=== PATIENT | male | born 1965 | race African-American/Black ===

== ENCOUNTER 2018-02-10 12:11 | Emergency (ER) | payer MEDICAID ==
[~2018-02-10] VITALS: Ht 188 cm; Wt 99.8 kg
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
[2018-02-10] MEDS ORDERED: BACITRACIN IR STA (12:50)
[2018-02-10] MEDS ORDERED: NEOMY SULF IR STA (12:50)
[2018-02-10] MEDS ORDERED: [UNRECOGNIZED DRUG - OTHER] IR STA (12:50)
[2018-02-10] MEDS ORDERED: POLYMYXIN B SULFATE IR STA (12:50)
[2018-02-10] MEDS ORDERED: TDAP [DIPH/PERTUSSIS/TET] 0.5 ML VIAL IM ONE ×2 (13:00→13:06)
[2018-02-10] MEDS ORDERED: SILVER SULFADIAZINE CREAM 25 GM TUBE TP ONE (13:00)
--- NOTE | 2018-02-10 14:02 | NUR ---
Patient discharged to home in stable condition. Written and verbal after care instructions given. Patient verbalizes understanding of instruction.
[2018-02-10 14:03] VITALS: BP 128/94
== END 2018-02-10 14:03 | disposition home or self-care (01) ==
LOC: ER 12:14
DX: T24.232A Burn of second degree of left lower leg, initial encounter (principal); T24.112A Burn of first degree of left thigh, initial encounter; Z59.0 Homelessness; X08.8XXA Exposure to other specified smoke, fire and flames, initial encounter; Y93.89 Activity, other specified; Y92.488 Other paved roadways as the place of occurrence of the external cause; Y99.8 Other external cause status
CPT/HCPCS: 16020; 90471; 90715; 99284; A4606; Z7610; A4217

== ENCOUNTER 2019-11-17 17:37 | Emergency (ER) | payer SELFPAY ==
[~2019-11-17] VITALS: Ht 188 cm; Wt 99.8 kg
[2019-11-17 17:45] VITALS: BP 167/100
--- NOTE | 2019-11-17 19:12 | NUR ---
Patient discharged in custody in stable condition. Written and verbal after care instructions given. Patient verbalizes understanding of instruction.
== END 2019-11-17 19:14 | disposition home or self-care (01) ==
LOC: ER 17:41
DX: Z02.89 Encounter for other administrative examinations (principal)

== ENCOUNTER 2020-07-31 09:16 | Inpatient (IN) | payer MEDICAID ==
[~2020-07-31] VITALS: Ht 188 cm; Wt 75.3 kg
[~2020-07-31 09:16] MED LIST: ONDANSETRON HCL/PF 4 MG/2 ML VIAL IVP PRN
--- NOTE | 2020-07-31 09:31 | NUR ---
Figueroa c/o body pain s/p snake bites in the butt 4 days ago. On room air, breathing evenly and unlabored. Connected to the monitor and pulse ox. kept comfortable, will continue to monitor accordingly.
--- NOTE | 2020-07-31 09:45 | NUR ---
URINE COLLECTED SENT TO LAB
[2020-07-31 10:29] LABS: BASOPHILS % (AUTO) 0.1 % (0.0-2.0); HEMATOCRIT 39 % (39-51); HEMOGLOBIN 12.8 g/dL (13.5-17.5); LYMPHOCYTES # (AUTO) 0.3 /CMM (0.8-4.8); LYMPHOCYTES % (AUTO) 1.1 % (20.0-44.0); MEAN CORPUSCULAR HGB CONC 33 g/dl (31.0-36.0); MEAN CORPUSCULAR VOLUME 88 fL (80-96); MONOCYTES # (AUTO) 0.8 /CMM (0.1-1.30); MONOCYTES % (AUTO) 3.5 % (2.0-12.0); NEUTROPHILS # (AUTO) 21.7 /CMM (1.8-8.9); NEUTROPHILS % (AUTO) 93.3 % (43.0-81.0); PLATELET COUNT (AUTO) 201 /CMM (150-450); RED BLOOD CELL COUNT(AUTO) 4.38 MIL/uL (4.5-6.0); WHITE BLOOD COUNT (AUTO) 23.3 K/uL (4.3-11.0)
[2020-07-31 10:41] LABS: CALCIUM, SERUM 8.4 mg/dL (8.5-10.1); CREATININE 1.6 mg/dL (0.6-1.3); POTASSIUM 4.5 mmol/L (3.5-5.1)
[2020-07-31 10:47] LABS: BILIRUBIN,URINE SMALL (NEGATIVE); BLOOD, URINE LARGE Ery/uL (NEGATIVE); COLOR,URINE DARK YELLOW (YELLOW); LEUKOCYTE ESTERASE ,URINE TRACE (NEGATIVE); NITRITE, URINE NEGATIVE (NEGATIVE); PROTEIN,URINE 100 mg/dl (NEGATIVE); UGLUCOSE NEGATIVE (NEGATIVE)
[2020-07-31 10:48] LABS: ALBUMIN 2.3 g/dL (3.4-5.0); BILIRUBIN,DIRECT 0.7 mg/dL (0.0-0.2); BILIRUBIN,TOTAL 1.1 mg/dL (0.2-1.0); TOTAL PROTEIN, SERUM 6.8 g/dL (6.4-8.2)
[2020-07-31] MEDS ORDERED: LEVOFLOXACIN 750 MG /D5W 150ML PIGGYBACK IV ONE (11:00)
[2020-07-31] MEDS ORDERED: LEVOFLOXACIN 750 MG /D5W 150ML 150 ML IV ONE (11:04)
[2020-07-31 11:06] LABS: BACTERIA,URINE Few /HPF (None Seen); SQUAMOUS EPITHELIAL CELL,UR Few /HPF (None Seen); WBC,URINE 0-2 /HPF (0-3)
--- NOTE | 2020-07-31 11:22 | NUR ---
PAGED [facility].
--- NOTE | 2020-07-31 11:44 | NUR ---
CALLED NURSING SUP FOR M/S BED.
[2020-07-31] MEDS ORDERED: IV NS 0.9% 1,000 ML IV ONE (13:00)
[2020-07-31] MEDS ORDERED: ALBUTEROL SULFATE 8 GM HFA.AER.AD IH PRN (13:00)
--- NOTE | 2020-07-31 13:06 | NUR ---
PT IS RECEIVING 1L NS VIA IV. PT IS NOT GOING TO RECEIVE FULL FLUID CHALLENGE PER MD D/T PT IS STILL AWAITING COVID RESULT WHICH IS PCR.
[2020-07-31 14:37] LABS: C-REACTIVE PROTEIN 210.1 mg/dL (0.0-0.9)
--- NOTE | 2020-07-31 14:43 | NUR ---
BED ASSIGNED IS 264, OVERFLOW TO ICU
--- NOTE | 2020-07-31 14:51 | NUR ---
report given to gladys rosales at icu
[2020-07-31 15:23] VITALS: BP 99/72
[2020-07-31 16:00] VITALS: BP 112/76
--- NOTE | 2020-07-31 16:00 | NUR ---
PT TRANSPORTED TO UNIT ON GURNEY WITH EMT AND RN AT THE BEDSIDE W/ ACLS RPTOCOL. NAD NOTED DURING TRANSPORT
[2020-07-31] MEDS: VANCOMYCIN 1 GM in IV D5W 250ml IV SCH (16:45)
[2020-07-31 17:00] VITALS: BP 133/90
[2020-07-31] MEDS: IV NS 0.9% 1,000 ML IV PRN (17:22)
[2020-07-31 18:00] VITALS: BP 114/67
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
--- NOTE | 2020-07-31 19:41 | NUR ---
END OF SHIFT NOTE: PT ARRIVED IN ICU MED/SURG OVERFLOW AT 1510 VIA GURNEY. ISOLATION FOR R/O COVID, NO COVID SYMPTOMS NOTED. PT ON RA, NO COUGH OR RESPIRATORY SYMPTOMS. PT C/O GENERALIZED PAIN, ESPECIALLY RIGHT LEG, STATING THAT THE PAIN IS RELATED TO "A SNAKE BITE" ON HIS BUTTOCKS 4 DAYS AGO. NO WOUND NOTED ON RIGHT BUTTOCK, WOUND NOTED ON LEFT BUTTOCK, APPEARS TO BE AN ABRASION, PICTURE TAKEN, PLACED ON CHART. WOUND CARE CONSULT ORDERED. AT 1930 WHILE GIVING CHANGE OF SHIFT REPORT PATIENT APPEARED TO BE LAYING ON THE FLOOR NEXT TO THE BED. RN ASKED PATIENT WHY HE WAS ON THE FLOOR PT STATED "IT WAS TOO HOT ON THE BED, THE FLOOR IS COOLER". RN ASKED PATIENT IF HE FELL, PT STATED NO, HE PURPOSELY SLID OFF THE BED TO THE FLOOR TO GET COOL. PT DENIES ANY INJURIES FROM THE FALL, NO NEW WOUNDS NOTED. CHARGE NURSE NOTIFIED. PT WAS ASSISTED BACK TO BED, PT WAS MOVED CLOSER TO THE NURSES STATION AND BED ALARM WAS PUT ON. RN ALSO INSTRUCTED PATIENT TO NOT GET ON THE FLOOR FOR ANY REASON. IV SITE STILL INTACT. PT CHECKED ON HOURLY AND PRN BY NURSING STAFF.
[2020-07-31 20:00] VITALS: BP 113/79
[2020-08-01] MEDS: VANCOMYCIN 1 GM in IV D5W 250ml IV SCH ×3 (03:40→23:33)
[2020-08-01] MEDS: IV NS 0.9% 1,000 ML IV PRN (03:42)
[2020-08-01 04:00] VITALS: BP 117/66
--- NOTE | 2020-08-01 06:05 | NUR ---
RN NOTE RECEIVED BLOOD CULTURE RESULT FROM LAB FOR GRAM POSITIVE COCCI IN CHAINS. PATIENT IS ALREADY ON LEVAQUIN 500 MG AND VANCOMYCIN [address] BILL VANEGAS MADE AWARE. NO NEW ORDERS GIVEN. WILL CONTINUE TO MONITOR.
[2020-08-01 06:13] LABS: BASOPHILS # (AUTO) 0.2 /CMM (0.0-0.2); BASOPHILS % (AUTO) 0.5 % (0.0-2.0); EOSINOPHILS % (AUTO) 3.6 % (0.0-6.0); HEMATOCRIT 36 % (39-51); LYMPHOCYTES # (AUTO) 0.3 /CMM (0.8-4.8); LYMPHOCYTES % (AUTO) 1.2 % (20.0-44.0); MEAN CORPUSCULAR HGB CONC 33 g/dl (31.0-36.0); MEAN CORPUSCULAR VOLUME 87 fL (80-96); MONOCYTES # (AUTO) 1.4 /CMM (0.1-1.30); MONOCYTES % (AUTO) 4.8 % (2.0-12.0); NEUTROPHILS # (AUTO) 25.6 /CMM (1.8-8.9); NEUTROPHILS % (AUTO) 89.9 % (43.0-81.0); PLATELET COUNT (AUTO) 148 /CMM (150-450); RED BLOOD CELL COUNT(AUTO) 4.12 MIL/uL (4.5-6.0); WHITE BLOOD COUNT (AUTO) 28.5 K/uL (4.3-11.0)
[2020-08-01 06:41] LABS: ALBUMIN 1.8 g/dL (3.4-5.0); CALCIUM, SERUM 7.8 mg/dL (8.5-10.1); CREATININE 1.2 mg/dL (0.6-1.3); POTASSIUM 3.7 mmol/L (3.5-5.1); TOTAL PROTEIN, SERUM 6.1 g/dL (6.4-8.2)
--- NOTE | 2020-08-01 06:54 | NUR ---
RN NOTE PATIENT REMAINED STABLE THROUGHOUT THE NIGHT. NO SIGNIFICANT CHANGES NOTED. NO EPISODE OF FALL DURING THE NIGHT. PATIENT KEPT CLEAN, DRY, AND COMFORTABLE. DUE MEDS GIVEN ORDERED AND TOLERATED WELL. WILL ENDORSE TO AM SHIFT RN FOR CONTINUATION OF CARE.
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
--- NOTE | 2020-08-01 08:39 | NUR ---
RN NOTES MALIKA SANCHEZ INFORMED THAT CKMB OF 15.6 [address] DENICE CABRERA
--- NOTE | 2020-08-01 09:24 | NUR ---
RN NOTES NO ORDERS FOR CRITICAL VALUE OF CK MB AND PROCALCITONIN
[2020-08-01] MEDS ORDERED: HYDROGEL DRESSING 90 GM TUBE TP PRN (10:00)
[2020-08-01] MEDS ORDERED: Z GUARD REMEDY 2 OZ OINT TP PRN (10:00)
--- NOTE | 2020-08-01 10:03 | NUR ---
WOUND CARE CONSULT: PT PRESENTS WITH STAGE 3 ULCER TO LEFT BUTTOCK, PRESENT ON ADMISSION. DR ORLY DE LA O NOTIFIED OF SURGICAL CONSULT REQUEST. RECOMMENDATIONS MADE FOR SKIN PROTECTION AND WOUND CARE. DISCUSSED WITH NURSING STAFF. PT IS ON STEPH ISOFLEX LOW AIRLOSS BED. MD IN AGREEMENT WITH PLAN OF CARE.
[2020-08-01] MEDS: HYDROGEL DRESSING 90 GM TUBE TP SCH (10:19)
[2020-08-01] MEDS: LEVOFLOXACIN 500 MG /D5W 100ML 500 MG in PREMIX 1 EA IV SCH (11:03)
[2020-08-01 12:00] VITALS: BP 117/66
--- NOTE | 2020-08-01 13:29 | NUR ---
SW attempted to meet with the patient at bedside. Patient was being assisted by WEED CONTROLLER for a change in garments. Plan: SW to attempt to speak with the patient at a later time.
--- NOTE | 2020-08-01 14:00 | NUR ---
RN NOTES PT HAS NO OB OR DISTRESS NOTED AT THIS TIME
--- NOTE | 2020-08-01 16:00 | NUR ---
RN NOTES PLACED CONDOM CATH AND COLLECTED URINE FOR SPECIMEN
--- NOTE | 2020-08-01 18:35 | NUR ---
RN CLOSING NOTES PT IS RESTING IN BED. . A/O X2. ABLE TO MAKE NEEDS KNOWN IN [place]. SPEECH IS CLEAR. BREATHING IS EVEN AND UNLABORED.NO S/S OF SOB OR DISTRESS NOTED O2 SAT IS 96% ON ROOM AIR. IV SITE ON RIGHT FOREARM IS CLEAN, DRY, AND PATENT NO SIGN OF INFILTRATION OR INFECTION NOTED. CONDOM CATH IS PLACED. ON NS IV FLUID RUNNING AT 100 ML/HR. IN NO APPARENT DISTRESS NOTED. NO COMPLAINTS OF ANY PAIN AT THIS TIME. SAFETY MEASUREMENTS ARE IMPLEMENTED PER HOSPITAL POLICY. CALL LIGHT IS WITHIN THE REACH. BED ALARM ON AND SIDE RAILS ARE UP X2 BED IS LOWEST POSITION. WILL ENDORSE TO CROP ADJUSTER
[2020-08-01 20:00] VITALS: BP 112/67
[2020-08-01 21:33] LABS: BILIRUBIN,URINE NEGATIVE (NEGATIVE); BLOOD, URINE MODERATE Ery/uL (NEGATIVE); COLOR,URINE YELLOW (YELLOW); LEUKOCYTE ESTERASE ,URINE NEGATIVE (NEGATIVE); NITRITE, URINE NEGATIVE (NEGATIVE); PROTEIN,URINE TRACE mg/dl (NEGATIVE); UGLUCOSE NEGATIVE (NEGATIVE)
[2020-08-01 21:35] LABS: BACTERIA,URINE None seen /HPF (None Seen); SQUAMOUS EPITHELIAL CELL,UR Few /HPF (None Seen); WBC,URINE 0-2 /HPF (0-3)
[2020-08-02 04:00] VITALS: BP 101/69
[2020-08-02] MEDS: IV NS 0.9% 1,000 ML IV PRN (04:29)
[2020-08-02 06:03] LABS: BASOPHILS # (AUTO) 0.1 /CMM (0.0-0.2); BASOPHILS % (AUTO) 0.3 % (0.0-2.0); EOSINOPHILS % (AUTO) 0.1 % (0.0-6.0); HEMATOCRIT 34 % (39-51); HEMOGLOBIN 11.4 g/dL (13.5-17.5); LYMPHOCYTES # (AUTO) 0.5 /CMM (0.8-4.8); LYMPHOCYTES % (AUTO) 1.7 % (20.0-44.0); MEAN CORPUSCULAR HGB CONC 33 g/dl (31.0-36.0); MEAN CORPUSCULAR VOLUME 87 fL (80-96); MONOCYTES # (AUTO) 1.6 /CMM (0.1-1.30); MONOCYTES % (AUTO) 5.6 % (2.0-12.0); NEUTROPHILS # (AUTO) 26.9 /CMM (1.8-8.9); NEUTROPHILS % (AUTO) 92.3 % (43.0-81.0); PLATELET COUNT (AUTO) 150 /CMM (150-450); RED BLOOD CELL COUNT(AUTO) 3.91 MIL/uL (4.5-6.0); WHITE BLOOD COUNT (AUTO) 29.1 K/uL (4.3-11.0)
[2020-08-02 06:11] LABS: CALCIUM, SERUM 7.8 mg/dL (8.5-10.1); CREATININE 0.6 mg/dL (0.6-1.3); MAGNESIUM 2.7 mg/dL (1.8-2.4); PHOSPHORUS 2.1 mg/dL (2.5-4.9); POTASSIUM 3.2 mmol/L (3.5-5.1)
--- NOTE | 2020-08-02 06:42 | NUR ---
RN CLOSING NOTES, PATIENT IN BED AWAKE A/O X2, BREATHING IS EVEN AND UNLABORED, NO S/S OF SOB OR DISTRESS NOTED WITH OPTIMAL O2 SAT LEVEL ON ROOM AIR, IV SITE ON RIGHT FOREARM PATENT AND INTACT IVF INFUSING ORDERED, AND PATIENT TOLERATED WELL, SAFETY MEASUREMENTS ARE IMPLEMENTED PER HOSPITAL POLICY, CALL LIGHT IS WITHIN THE REACH, BED LOCKED AND LOWEST POSITION, ALARM ON, SIDE RAILS ARE UP X2, WILL ENDORSE CONTINUITY OF CARE TO ONCOMING NURSE.
--- NOTE | 2020-08-02 07:15 | NUR ---
RN OPENING NOTES RECEIVED PATIENT IN BED AWAKE, A/O X2. ON ROOM AIR, SATURATION @99%. NO SOB OR ANY SIGNS OF DISTRESS NOTED AT THIS TIME. IV SITE ON RIGHT FOREARM INTACT AND PATENT. NS @100MLS/HR INFUSING WELL. SOFT DIET. SAFETY MEASUREMENTS IMPLEMENTED. CALL LIGHT WITHIN REACH. BED LOCKED AND AT LOWEST POSITION. BED ALARM ON. SIDE RAILS ARE UP X2. WILL CONTINUE TO MONITOR.
[2020-08-02] MEDS ORDERED: POTASSIUM CHLORIDE 20 MEQ TAB.PRT.SR PO ONE (08:00)
[2020-08-02] MEDS: VANCOMYCIN 1 GM in IV D5W 250ml IV SCH ×2 (08:15→16:00)
[2020-08-02 08:16] LABS: LYMPHOCYTES % (MANUAL) 1 % (16-48); MONOCYTES % (MANUAL) 5 % (0-11.0); NEUTROPHILS % (MANUAL) 94 (42-76)
[2020-08-02] MEDS: HYDROGEL DRESSING 90 GM TUBE TP SCH (09:23)
[2020-08-02] MEDS ORDERED: K PHOS NEUTRAL 250 MG TABLET PO ONE (09:30)
[2020-08-02] MEDS: LEVOFLOXACIN 500 MG /D5W 100ML 500 MG in PREMIX 1 EA IV SCH (11:00)
[2020-08-02 12:00] VITALS: BP 114/77
--- NOTE | 2020-08-02 16:40 | NUR ---
This SW met with the patient at bedside. Patient is alert and oriented x3. Patient made appropriate eye contact throughout assessment. Patient was calm and cooperative. Patient reported to this SW that he has been homeless for a year. Patient reports that prior to being admitted to [facility] on 07/31 patient was feeling weak and unable to take care of himself. Patient reports that he would like assistance on applying to Social Security and EBT. SW informed this patient that this SW can provide information to the patient and patient would provide information to Social Security office. Patient understood. Patient reported to this SW regarding placement, per patient he has been speaking with case management regarding placement. Patient asked this SW to leave room as he was tired, SW understood and acknowledged patient's request. Plan: SW to follow-up to ensure plan and safe discharge once patient is medically cleared.
--- NOTE | 2020-08-02 17:15 | NUR ---
RN NOTES REPORT GIVEN TO HAYLEY CURTIS FOR ARAM
--- NOTE | 2020-08-02 18:42 | NUR ---
CARDING UTILITY TENDER CLOSING NOTES PATIENT IN BED AWAKE A/O X2, NOT IN ANY ACUTE DISTRESS , NO S/S OF SOB OR DISTRESS NOTED WITH OPTIMAL O2 SAT LEVEL ON ROOM AIR, IV SITE ON RIGHT FOREARM PATENT AND INTACT IVF INFUSING ORDERED, AND PATIENT TOLERATED WELL, SAFETY MEASUREMENTS ARE IMPLEMENTED PER HOSPITAL POLICY, CALL LIGHT IS WITHIN THE REACH, BED LOCKED AND LOWEST POSITION, ALARM ON, SIDE RAILS ARE UP X2, WILL ENDORSE TO NEXT SHIFT FOR ARAM.
[2020-08-02 20:00] VITALS: BP 104/67
--- NOTE | 2020-08-02 20:00 | NUR ---
RN NOTE RECEIVED PT IN THE BED RESTING. PT IS A/A/O X2. PT IS ON RA SATING ABOVE 95%. PT HAS UNLABORED BREATHING. PT ON TELE MONITOR SHOWING SR WITH HR IN 90s. SAFETY MEASURES IN PLACE.
[2020-08-03] VITALS: BP 121/76
[2020-08-03] MEDS: VANCOMYCIN 1 GM in IV D5W 250ml IV SCH ×2 (00:06→09:44)
[2020-08-03] MEDS: ACETAMINOPHEN 325 MG TABLET PO PRN (02:00)
--- NOTE | 2020-08-03 02:45 | NUR ---
RN NOTE PT IS COMPLAINING OF PAIN IN LEFT LOWER LEG , CONTACTED JAGJIT PRESLEY AND RECEIVED ORDER FOR NORCO 10/325 Q6H PRN, AND DUPLEX VENOUS TO RULE OUT DVT.
[2020-08-03 04:00] VITALS: BP 142/89
[2020-08-03] MEDS: HYDROCODONE/APAP 10/325MG TABLET PO PRN ×3 (04:45→19:25)
[2020-08-03] MEDS: IV NS 0.9% 1,000 ML IV PRN ×2 (04:57→22:27)
[2020-08-03 06:03] LABS: BASOPHILS # (AUTO) 0.1 /CMM (0.0-0.2); BASOPHILS % (AUTO) 0.2 % (0.0-2.0); HEMATOCRIT 36 % (39-51); HEMOGLOBIN 11.6 g/dL (13.5-17.5); LYMPHOCYTES # (AUTO) 0.7 /CMM (0.8-4.8); LYMPHOCYTES % (AUTO) 2.7 % (20.0-44.0); MEAN CORPUSCULAR HGB CONC 33 g/dl (31.0-36.0); MEAN CORPUSCULAR VOLUME 90 fL (80-96); MONOCYTES # (AUTO) 2.4 /CMM (0.1-1.30); MONOCYTES % (AUTO) 8.9 % (2.0-12.0); NEUTROPHILS % (AUTO) 88.2 % (43.0-81.0); PLATELET COUNT (AUTO) 175 /CMM (150-450); RED BLOOD CELL COUNT(AUTO) 3.98 MIL/uL (4.5-6.0); WHITE BLOOD COUNT (AUTO) 27.2 K/uL (4.3-11.0)
[2020-08-03 06:10] LABS: CALCIUM, SERUM 8.1 mg/dL (8.5-10.1); CREATININE 0.7 mg/dL (0.6-1.3); MAGNESIUM 2.4 mg/dL (1.8-2.4); POTASSIUM 3.6 mmol/L (3.5-5.1)
--- NOTE | 2020-08-03 07:18 | NUR ---
RN NOTE PT REMAINED STABLE DURING MY SHIFT, REPORT GIVEN TO INCOMING SHIFT FOR ARAM.
--- NOTE | 2020-08-03 07:40 | NUR ---
SALES LEAD GENERATOR 1 RECEIVED PATIENT IN BED, SLEEPING, EASILY AROUSABLE BY VERBAL STIMULI. ALERT ORIENTED X2 BREATHING EVEN AND UNLABORED . PATIENT ON TELE MONITOR, SINUS RHYTHM. NO SOB, NO PAIN NOTED. WITH PIV AT RFA WITH NS RUNNING AT 100ML/HR. NO SIGNS OF INFILTRATION, NO REDNESS NOTED ON IV SITE. BED AT LOWEST POSITION. SIDE RAILS UP X2 ALL SAFETY MEASURES IMPLEMENTED PER PROTOCOL. CALL LIGHT WITHIN REACH.
[2020-08-03 09:04] LABS: ABG PO2 99.2 mmHg (75.0-100.0); COHb 1.2 % (0.5-1.5); MetHb 0.1 % (0.0-1.5); O2Hb 96.7 % (94.0-97.0); SITE, ABG Right Radial; VENT MODE, BG RA
[2020-08-03] MEDS: HYDROGEL DRESSING 90 GM TUBE TP SCH (09:44)
[2020-08-03] MEDS: LEVOFLOXACIN 500 MG /D5W 100ML 500 MG in PREMIX 1 EA IV SCH (11:39)
[2020-08-03 12:00] VITALS: BP 143/86
[2020-08-03] MEDS ORDERED: NEUTRA PHOS 1 POWD.PACKET PO ONE (12:30)
[2020-08-03] MEDS: VANCOMYCIN 1.25 GM in IV D5W 250 ML IV SCH ×2 (15:35→23:10)
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
--- NOTE | 2020-08-03 18:23 | NUR ---
SUPERINTENDENT PRESSURE 1 RESIDENT IN BED, ALERT ORIENTED X2. NOT IN ANY ACUTE DISTRESS, NO SOB, GENERALIZED PAIN NOTED DESCRIBED ACHY. WITH EXTERNAL MONITOR, SR/ST. PATIENT USE URINAL AT BEDSIDE WITH 1360 OUTPUT. WITH LEFT BUTTOCKS ABRASION, STATED A SNAKE BITE. PATIENT HAD DOPPLER ON LLE, BECAME POSITIVE WITH DVT, AWARE. WITH RFA 20 G, ON NS RUNNING 100ML/HR. NO SIGNS OF INFILTRATION. BED LOCKS, LOWEST POSITION. SIDE RAILS UP X2. CALL LIGHT WITHIN REACH, ALL SAFETY MEASURES IMPLEMENTED PER PROTOCOL
[2020-08-03 20:00] VITALS: BP 158/99
[2020-08-04] VITALS: BP 127/91
[2020-08-04] MEDS: HYDROCODONE/APAP 10/325MG TABLET PO PRN ×4 (02:39→22:19)
[2020-08-04 04:00] VITALS: BP 139/96
--- NOTE | 2020-08-04 06:08 | NUR ---
DIRECTOR SEARCH CLOSING NOTES: PATIENT IN BED, AWAKE, A/O X3, NO S/S OF DISTRESS NOTED. CALL LIGHT WITHIN REACH. BED ALARM ON. BED IN LOWEST AND LOCKED POSITION. RESTED THROUGHOUT THE NIGHT.
[2020-08-04 06:46] LABS: BASOPHILS # (AUTO) 0.1 /CMM (0.0-0.2); BASOPHILS % (AUTO) 0.2 % (0.0-2.0); EOSINOPHILS % (AUTO) 1.1 % (0.0-6.0); HEMATOCRIT 36 % (39-51); HEMOGLOBIN 11.5 g/dL (13.5-17.5); LYMPHOCYTES % (AUTO) 2.7 % (20.0-44.0); MEAN CORPUSCULAR HGB CONC 32 g/dl (31.0-36.0); MEAN CORPUSCULAR VOLUME 89 fL (80-96); MONOCYTES # (AUTO) 1.9 /CMM (0.1-1.30); MONOCYTES % (AUTO) 5.3 % (2.0-12.0); NEUTROPHILS # (AUTO) 32.8 /CMM (1.8-8.9); NEUTROPHILS % (AUTO) 90.7 % (43.0-81.0); PLATELET COUNT (AUTO) 263 /CMM (150-450)
[2020-08-04 06:53] LABS: WHITE BLOOD COUNT (AUTO) 36.2 K/uL (4.3-11.0)
--- NOTE | 2020-08-04 06:57 | NUR ---
RECEIVED A CALL FOR CRITICAL WBC-36.2, INFORMED EXCHANGE TELLER JAGJIT.
--- NOTE | 2020-08-04 07:00 | NUR ---
MOTOR ASSEMBLER 1 RECEIVED PATIENT IN BED, SLEEPING, EASILY AROUSABLE BY VERBAL STIMULI. ALERT ORIENTED X3 BREATHING EVEN AND UNLABORED , NO ACUTE RESPIRATORY DISTRESS . PATIENT ON TELE MONITOR, SINUS RHYTHM. NO SOB, NO PAIN NOTED. WITH IV RIGHT 18 AC WITH NS RUNNING AT 100ML/HR. NO SIGNS OF INFILTRATION, NO REDNESS NOTED ON IV SITE. BED AT LOWEST POSITION. SIDE RAILS UP X2 ALL SAFETY MEASURES IMPLEMENTED PER HOSPITAL PROTOCOL. CALL LIGHT WITHIN REACH.
[2020-08-04 07:23] LABS: CALCIUM, SERUM 7.9 mg/dL (8.5-10.1); CREATININE 0.6 mg/dL (0.6-1.3); MAGNESIUM 1.9 mg/dL (1.8-2.4); PHOSPHORUS 2.4 mg/dL (2.5-4.9)
[2020-08-04 07:35] LABS: BAND % (MANUAL) 2 % (0.0-5.0); LYMPHOCYTES % (MANUAL) 2 % (16-48); MONOCYTES % (MANUAL) 6 % (0-11.0); NEUTROPHILS % (MANUAL) 90 (42-76)
[2020-08-04] MEDS: VANCOMYCIN 1.25 GM in IV D5W 250 ML IV SCH ×2 (08:14→15:51)
[2020-08-04] MEDS: HYDROGEL DRESSING 90 GM TUBE TP SCH (09:20)
[2020-08-04 09:40] LABS: URINE SODIUM, RANDOM < 5 mmol/l (40-220)
[2020-08-04] MEDS: IV NS 0.9% 1,000 ML IV PRN (11:11)
[2020-08-04] MEDS: LEVOFLOXACIN 500 MG /D5W 100ML 500 MG in PREMIX 1 EA IV SCH (11:11)
[2020-08-04] MEDS: ENOXAPARIN SODIUM 80 MG/0.8 ML DISP.SYRIN SQ SCH ×2 (11:56→22:16)
[2020-08-04 12:00] VITALS: BP 139/96
[2020-08-04 12:03] LABS: OSMOLALITY,URINE 152 mOS/kg (340-1090)
[2020-08-04] MEDS ORDERED: K PHOS NEUTRAL 250 MG TABLET PO ONE (16:30)
[2020-08-04] MEDS ORDERED: CEFTRIAXONE 1 G VIAL IM SCH (17:00)
[2020-08-04] MEDS: CEFTRIAXONE 1 G in IV D5W 50 ML IV SCH (17:27)
--- NOTE | 2020-08-04 18:41 | NUR ---
DIRECTOR STERILE PROCESSING 1 RESIDENT IN BED, ALERT ORIENTED X2. NOT IN ANY ACUTE DISTRESS, NO SOB, GENERALIZED PAIN NOTED DESCRIBED ACHY. WITH EXTERNAL MONITOR, SR/ST. PATIENT USE URINAL AT BEDSIDE WITH 1450 OUTPUT. PATIENT WBC INCREASE TO 36 MD AWARE WITH LEFT BUTTOCKS ABRASION, STATED A SNAKE BITE. PATIENT HAD DOPPLER ON LLE, BECAME POSITIVE WITH DVT, MD AWARE. WITH RAC 18 G, ON NS RUNNING 100ML/HR. NO SIGNS OF INFILTRATION. BED LOCKS, LOWEST POSITION. SIDE RAILS UP X2. CALL LIGHT WITHIN REACH, ALL SAFETY MEASURES IMPLEMENTED PER HOSPITAL PROTOCOL
[2020-08-04 20:00] VITALS: BP 135/71
[2020-08-05] MEDS: IV NS 0.9% 1,000 ML IV PRN ×3 (00:39→23:26)
[2020-08-05 04:00] VITALS: BP 145/98
[2020-08-05] MEDS: HYDROCODONE/APAP 10/325MG TABLET PO PRN ×3 (04:32→21:53)
[2020-08-05 06:34] LABS: BASOPHILS # (AUTO) 0.1 /CMM (0.0-0.2); BASOPHILS % (AUTO) 0.2 % (0.0-2.0); EOSINOPHILS % (AUTO) 0.3 % (0.0-6.0); HEMATOCRIT 32 % (39-51); HEMOGLOBIN 10.7 g/dL (13.5-17.5); LYMPHOCYTES # (AUTO) 1.5 /CMM (0.8-4.8); MEAN CORPUSCULAR HGB CONC 33 g/dl (31.0-36.0); MEAN CORPUSCULAR VOLUME 88 fL (80-96); MONOCYTES # (AUTO) 1.8 /CMM (0.1-1.30); MONOCYTES % (AUTO) 4.7 % (2.0-12.0); NEUTROPHILS # (AUTO) 34.5 /CMM (1.8-8.9); NEUTROPHILS % (AUTO) 90.8 % (43.0-81.0); PLATELET COUNT (AUTO) 342 /CMM (150-450); RED BLOOD CELL COUNT(AUTO) 3.69 MIL/uL (4.5-6.0)
[2020-08-05 07:01] LABS: CALCIUM, SERUM 7.7 mg/dL (8.5-10.1); CREATININE 0.5 mg/dL (0.6-1.3); MAGNESIUM 1.7 mg/dL (1.8-2.4); PHOSPHORUS 2.7 mg/dL (2.5-4.9)
[2020-08-05 07:05] LABS: WHITE BLOOD COUNT (AUTO) 38.1 K/uL (4.3-11.0)
--- NOTE | 2020-08-05 07:30 | NUR ---
RN MS NOTES PT IN BED, ASLEEP, EASILY AROUSABLE, ALERT AND ORIENTED, NO COMPLAINT OF PAIN OR ANY DISCOMFORT, BREATHING PATTERN NORMAL, CALL LIGHT WITHIN REACH, IV FLUIDS INFUSING WELL, NEEDS ATTENDED.
[2020-08-05 08:00] VITALS: BP 143/104
[2020-08-05] MEDS: HYDROGEL DRESSING 90 GM TUBE TP SCH (08:31)
[2020-08-05] MEDS: ENOXAPARIN SODIUM 80 MG/0.8 ML DISP.SYRIN SQ SCH ×2 (08:31→20:32)
[2020-08-05 09:54] LABS: BAND % (MANUAL) 3 % (0.0-5.0); LYMPHOCYTES % (MANUAL) 3 % (16-48); MONOCYTES % (MANUAL) 4 % (0-11.0); NEUTROPHILS % (MANUAL) 90 (42-76)
[2020-08-05] MEDS: Magnesium 1GM/D5W 100ML PREMIX 100 ML IV SCH ×2 (10:51→11:59)
--- NOTE | 2020-08-05 13:07 | NUR ---
RN MS NOTES PT IN BED, AWAKE, ALERT AND ORIENTED, PAIN MEDICATION GIVEN FOR LEG PAIN, BREATHING PATTERN NORMAL, CALL LIGHT WITHIN REACH, IV FLUIDS INFUSING WELL, ASSISTED WITH URINAL USE, NEEDS ATTENDED, DUE MEDS GIVEN ORDERED.
[2020-08-05 16:00] VITALS: BP 140/82
[2020-08-05] MEDS: CEFTRIAXONE 1 G in IV D5W 50 ML IV SCH (17:04)
[2020-08-05] MEDS ORDERED: HYDROCODONE/APAP 10/325MG TABLET PO ONE (17:30)
--- NOTE | 2020-08-05 18:06 | NUR ---
RN MS NOTES PT IN BED, SLEEPS INTERMITTENTLY, PAIN MEDS GIVEN ORDERED FOR PAIN MANAGEMENT, NOT IN DISTRESS, IV FLUIDS INFUSING WELL, CALL LIGHT WITHIN REACH, NEEDS ATTENDED IN A TIMELY MANNER, SEEN AND EXAMINED BY DR. GALDAMEZ, PLAN OF CARE DISCUSSED WITH PT, PT REFUSES WOUND TREATMENT AND DRESSING CHANGE, NOTED WITH GOOD APPETITE.
--- NOTE | 2020-08-05 19:34 | NUR ---
MS RN NOTES RECEIVED ON BED SLEEPING,AROUSABLE TO VERBAL STIMULI,BREATHING EASY,NO SOB.IVF NS AT 100ML/HR RATE INFUSING WELL ON RFA VIA IV PUMP,SITE PATENT.CALL LIGHT IN REACH,NEEDS ANTICIPATED.
[2020-08-05 20:00] VITALS: BP 121/72
--- NOTE | 2020-08-05 21:53 | NUR ---
MS RN NOTES PAIN MANAGEMENT C/O GENERALIZED PAIN 7/10 ON PAIN SCALE.MEDICATED WITH NORCO 1-/325MG,1 TAB PO ORDERED
[2020-08-06] MEDS: HYDROCODONE/APAP 10/325MG TABLET PO PRN ×3 (04:12→17:38)
--- NOTE | 2020-08-06 04:12 | NUR ---
MS RN NOTES C/O GENERALIZED PAIN 7/10 ON PAIN SCALE,NORCO 10/325MG,1 TAB PO GIVEN ORDERED.
[2020-08-06 05:04] VITALS: BP 149/97
--- NOTE | 2020-08-06 06:12 | NUR ---
MS RN NOTES ON BED,SLEPT WITH INTERVALS,IVF INFUSING WELL,SITE PATENT ON RIGHT FOREARM.MEPILEX IN PLACE ON SACRAL AREA.PAIN MANAGEMENT EFFECTIVE.CALL LIGHT IN REACH,NEEDS ATTENDED.
--- NOTE | 2020-08-06 07:30 | NUR ---
RN NOTE Received patient in bed, sleeping, easily arousable by verbal and touch stimuli, not in any acute distress. With Right AC PIV patent and intact, NS running at 100ml/hr. All safety measures implemented as per protocol, side rails up x2, bed locked in lowest position.
[2020-08-06 08:00] VITALS: BP 135/100
[2020-08-06] MEDS: ACETAMINOPHEN 325 MG TABLET PO PRN ×3 (08:01→21:01)
[2020-08-06] MEDS: ENOXAPARIN SODIUM 80 MG/0.8 ML DISP.SYRIN SQ SCH ×2 (08:02→21:02)
[2020-08-06] MEDS: HYDROGEL DRESSING 90 GM TUBE TP SCH (08:13)
[2020-08-06 09:10] LABS: BASOPHILS % (AUTO) 0.1 % (0.0-2.0); EOSINOPHILS % (AUTO) 0.2 % (0.0-6.0); HEMATOCRIT 32 % (39-51); HEMOGLOBIN 10.3 g/dL (13.5-17.5); LYMPHOCYTES # (AUTO) 1.3 /CMM (0.8-4.8); LYMPHOCYTES % (AUTO) 3.5 % (20.0-44.0); MEAN CORPUSCULAR HGB CONC 32 g/dl (31.0-36.0); MEAN CORPUSCULAR VOLUME 88 fL (80-96); MONOCYTES # (AUTO) 1.5 /CMM (0.1-1.30); NEUTROPHILS # (AUTO) 35.1 /CMM (1.8-8.9); NEUTROPHILS % (AUTO) 92.2 % (43.0-81.0); PLATELET COUNT (AUTO) 423 /CMM (150-450); RED BLOOD CELL COUNT(AUTO) 3.61 MIL/uL (4.5-6.0)
[2020-08-06] MEDS: IV NS 0.9% 1,000 ML IV PRN ×2 (10:01→21:01)
[2020-08-06 10:07] LABS: CALCIUM, SERUM 7.7 mg/dL (8.5-10.1); CREATININE 0.6 mg/dL (0.6-1.3); POTASSIUM 3.8 mmol/L (3.5-5.1)
[2020-08-06 10:10] LABS: LYMPHOCYTES % (MANUAL) 4 % (16-48); MONOCYTES % (MANUAL) 4 % (0-11.0); NEUTROPHILS % (MANUAL) 92 (42-76)
[2020-08-06] MEDS: CEFTRIAXONE 1 G in IV D5W 50 ML IV SCH (17:32)
[2020-08-06] MEDS ORDERED: LACTULOSE 10 G/15 ML UDC (PYXIS) PO ONE (18:30)
[2020-08-06] MEDS ORDERED: SORBITOL SOLUTION 30 ML PO ONE (18:30)
--- NOTE | 2020-08-06 19:30 | NUR ---
MS/RN OPENING NOTES RECEIVED PATIENT IS BED RESTING. PATIENT IS ALERT AND ORIENTED X 2-3. PATIENT IS TOLERATING ROOM AIR WELL. NO SIGNS OF SOB OR RESPIRATORY DISTRESS NOTED. BREATHING IS EVEN AND UNLABORED. PATIENT HAS IV ACCESS ON RIGHT UPPER ARM #20G INTACT. PATIENT STATES HE NEEDS A CIGARETTE AT THIS TIME, AND IS FEELING A BIT AGITATED. SAFETY MEASURES ARE IN PLACE, BED IS LOCKED AND PLACED IN THE LOW POSITION, SIDE RAILS UP X 2. CALL LIGHT IS WITHIN REACH. WILL MONITOR THROUGH OUT SHIFT.
--- NOTE | 2020-08-06 19:30 | NUR ---
PT IN BED, SLEEPS INTERMITTENTLY, PAIN MEDS GIVEN ORDERED FOR PAIN MANAGEMENT, NOT DISTRESS NOTED, IV FLUIDS INFUSING ORDERED, CALL LIGHT WITHIN REACH, ALL NEEDS ATTENDED , SEEN AND EXAMINED BY DR. GALDAMEZ, PLAN OF CARE DISCUSSED WITH PT, PT REFUSES WOUND TREATMENT AND DRESSING CHANGE, NOTED WITH GOOD APPETITE. WILL ENDORSE TO NEXT SHIFT FOR ARAM
[2020-08-06 20:00] VITALS: BP 148/88
[2020-08-07] MEDS: HYDROCODONE/APAP 10/325MG TABLET PO PRN ×3 (00:29→17:30)
--- NOTE | 2020-08-07 00:30 | NUR ---
MS/RN NOTES PT C/O GENERALIZED PAIN 8/10 ON PAIN SCALE,NORCO 10/325MG,1 TAB PO GIVEN ORDERED.
--- NOTE | 2020-08-07 01:00 | NUR ---
MS/RN NOTES PATIENT STATING, " THERE ARE REPTILES ON MY BODY, HURTING ME. I NEED TO GET OUT OF HERE." PATIENT REQUESTING FOR CIGARETTE. PATIENT BEING REORIENTED AND COMFORT MEASURES INITIATED.
[2020-08-07] MEDS: LORAZEPAM INJ 2 MG/ML VIAL IV PRN ×4 (01:26→15:57)
--- NOTE | 2020-08-07 01:30 | NUR ---
MS/RN NOTES PATIENT STATES HAVING TROUBLE SLEEPING AND HE IS FEELING ANXIOUS AND RESTLESS. PATIENT GIVEN ATIVAN 1 MG IVP, V/S ARE STABLE, WILL CONTINUE TO MONITOR.
--- NOTE | 2020-08-07 05:00 | NUR ---
MS/RN NOTES PATIENT REFUSED TO HAVE PHOTOS TAKEN OF WOUNDS. RISK AND BENEFITS HAVE BEEN EXPLAINED. PATIENT STATING NOT TO MOVE LOWER LIMBS SAYING, " OH GOD NO, IT HURTS".
--- NOTE | 2020-08-07 06:25 | NUR ---
MS/RN CLOSING NOTES PATIENT IN BED RESTING. PATIENT IS ALERT AND ORIENTED X 2. PATIENT IS TOLERATING ROOM AIR WELL. NO SIGNS OF SOB OR RESPIRATORY DISTRESS NOTED. BREATHING IS EVEN AND UNLABORED. PATIENT HAS IV ACCESS ON RIGHT UPPER ARM #20G INTACT RUNNING NS AT 100 ML/HR. PATIENTS NEEDS HAVE BEEN MET DURING SHIFT. SAFETY MEASURES ARE IN PLACE, BED IS LOCKED AND PLACED IN THE LOW POSITION, SIDE RAILS UP X 2. CALL LIGHT IS WITHIN REACH. WILL ENDORSE CARE TO DAY SHIFT.
[2020-08-07 06:29] LABS: BASOPHILS # (AUTO) 0.1 /CMM (0.0-0.2); BASOPHILS % (AUTO) 0.2 % (0.0-2.0); EOSINOPHILS % (AUTO) 0.2 % (0.0-6.0); HEMATOCRIT 30 % (39-51); HEMOGLOBIN 9.9 g/dL (13.5-17.5); LYMPHOCYTES # (AUTO) 1.5 /CMM (0.8-4.8); MEAN CORPUSCULAR HGB CONC 34 g/dl (31.0-36.0); MEAN CORPUSCULAR VOLUME 88 fL (80-96); MONOCYTES # (AUTO) 1.3 /CMM (0.1-1.30); MONOCYTES % (AUTO) 4.3 % (2.0-12.0); NEUTROPHILS # (AUTO) 27.7 /CMM (1.8-8.9); NEUTROPHILS % (AUTO) 90.3 % (43.0-81.0); PLATELET COUNT (AUTO) 487 /CMM (150-450); RED BLOOD CELL COUNT(AUTO) 3.36 MIL/uL (4.5-6.0)
[2020-08-07 06:52] LABS: CALCIUM, SERUM 7.8 mg/dL (8.5-10.1); CREATININE 0.5 mg/dL (0.6-1.3); MAGNESIUM 1.8 mg/dL (1.8-2.4); PHOSPHORUS 2.8 mg/dL (2.5-4.9); POTASSIUM 3.9 mmol/L (3.5-5.1)
--- NOTE | 2020-08-07 07:20 | NUR ---
PATIENT IN BED RESTING IN BED W NO SIGNS OF DISTRESS. PATIENT IS TOLERATING ROOM AIR WELL. NO SIGNS OF SOB OR RESPIRATORY DISTRESS NOTED. BREATHING IS EVEN AND UNLABORED. SKIN WARM AND FLUSHED. PATIENT HAS IV ACCESS ON RIGHT UPPER ARM #20G INTACT RUNNING NS AT 100 ML/HR. BILAT LOWER EXTREMITY SWELLING NOTED. PATIENTS NEEDS HAVE BEEN MET DURING SHIFT. SAFETY MEASURES ARE IN PLACE, BED IS LOCKED AND PLACED IN THE LOW POSITION, SIDE RAILS UP X 2. CALL LIGHT IS WITHIN REACH.
[2020-08-07 07:32] LABS: WHITE BLOOD COUNT (AUTO) 30.7 K/uL (4.3-11.0)
[2020-08-07] MEDS: HYDROGEL DRESSING 90 GM TUBE TP SCH (08:41)
[2020-08-07] MEDS: ENOXAPARIN SODIUM 80 MG/0.8 ML DISP.SYRIN SQ SCH (08:41)
--- NOTE | 2020-08-07 09:10 | NUR ---
PT NOT FOUND IN ROOM OR BATH ROOM OR VIOLET UNIT. SECURITY NOTIFIED. CHARGE NURSE NOTIFIED.REFRIGERATION SYSTEMS INSTALLER AND PRIMARY PHYSICIAN NOTIFIED. PT GAIT STEADY. IV ACCESS PRESENT. MIDLINE ON RIGHT UPPER ARM. WRIST BAND PRESENT. PT EDUCATED EARLIER ON IMPORTANCE OF FOLLOWING PRESCRIBED PLAN AND PATIENT VERBALIZED WANTING TO STAY IN THE HOSPITAL AND WAS WILLING TO COOPERATE. Addendum: 08/07/20 at 1029 by DAVID REED RN DISREGARD WRONG INCIDENT
[2020-08-07 09:58] LABS: BAND % (MANUAL) 2 % (0.0-5.0); LYMPHOCYTES % (MANUAL) 6 % (16-48); MONOCYTES % (MANUAL) 6 % (0-11.0); NEUTROPHILS % (MANUAL) 86 (42-76)
[2020-08-07 11:12] LABS: IRON, SERUM 15 ug/dl (50-175); TOTAL IRON BINDING CAPACITY 76 ug/dl (250-450)
[2020-08-07 11:25] LABS: FERRITIN 634 ng/mL (8-388)
[2020-08-07 16:00] VITALS: BP 160/110
[2020-08-07] MEDS: CEFTRIAXONE 1 G in IV D5W 50 ML IV SCH (17:29)
[2020-08-07] MEDS: NICOTINE PATCH (21MG) 21 MG PATCH.TD24 TD SCH (17:30)
[2020-08-07] MEDS: IV NS 0.9% 1,000 ML IV PRN (17:36)
--- NOTE | 2020-08-07 18:53 | NUR ---
PATIENT IN BED RESTING IN BED W NO SIGNS OF DISTRESS. A/OX2 DURING SHIFT. PATIENT IS TOLERATING ROOM AIR WELL. NO SIGNS OF SOB OR RESPIRATORY DISTRESS NOTED. BREATHING IS EVEN AND UNLABORED. SKIN WARM AND FLUSHED. PATIENT HAS IV ACCESS ON RIGHT UPPER ARM #20G INTACT RUNNING NS AT 100 ML/HR. BILAT LOWER EXTREMITY SWELLING NOTED. PATIENTS ORDERS IMPLEMENTED. MONITORED PAIN AND LEG SWELLING THROUGHOUT THE DAY. SAFETY MEASURES ARE IN PLACE, BED IS LOCKED AND PLACED IN THE LOW POSITION, SIDE RAILS UP X 2. CALL LIGHT IS WITHIN REACH. WILL ENDORSE TO PM RN.
--- NOTE | 2020-08-07 19:30 | NUR ---
MS RN OPENING NOTE RECEIVED PATIENT IN BED. A/OX 2. TOLERATING ROOM AIR. RESPIRATIONS ARE EVEN AND UNLABORED. NO S/S SOB NOTED. NO C/O PAIN AT THIS TIME. IN NO APPARENT DISTRESS. IV ACCESS IN SOPHIE#20 RUNNING NS @100ML/HR. BED IS LOW AND LOCKED, HOB ELEVATED IN SEMI FOWLERS, SIDE RAILS UP X3. CALL LIGHT WITHIN REACH. WILL CONTINUE TO MONITOR.
--- NOTE | 2020-08-07 19:43 | NUR ---
ms rn note received call from dr. lord from radiology to inform that patient US of right lower extremity is positive. nonoccluding dvt in right popiteal vein. will inform early childhood education instructor dr. michael black.
--- NOTE | 2020-08-07 19:55 | NUR ---
MS RN NOTE CALLED FLOW SPECIALIST MD JAGJIT HIGGINS TO INFORM HER THAT PATIENTS FINDINGS FOR POSITIVE DVT IN RIGHT LOWER EXTREMITY SHOWING NONOCCLUDING DVT IN RIGHT POPITEAL VEIN. ALSO INFORMED MD PATIENT IS ON XARELTO 15MG Q12HR. SAID NO NEW ORDERS AT THIS TIME. ORDER READ BACK NOTED AND CARRIED OUT.
[2020-08-07 20:00] VITALS: BP 160/104
--- NOTE | 2020-08-07 20:37 | NUR ---
MS RN NOTE CALLED HEALTH ASSOCIATE MD JAGJIT HIGGINS TO INFORMED HER PATIENT BP IS 160/104 HR 110, NO PRN BP MEDICATION ON MEDICATION LIST. TELEPHONE ORDER CLONIDINE 0.1MG q8HR PRN SYSTOLIC BP GREATER THAN 160. ORDER READ BACK NOTED AND CARRIED OUT.
[2020-08-07] MEDS ORDERED: CLONIDINE HCL 0.1 MG TABLET PO PRN (21:00)
[2020-08-07] MEDS: RIVAROXABAN 15 MG TABLET PO SCH (21:12)
[2020-08-07] MEDS: ACETAMINOPHEN 325 MG TABLET PO PRN (22:07)
--- NOTE | 2020-08-07 22:09 | NUR ---
MS RN NOTE ADMINISTERED PRN TYLENOL 650MG PER PATIENT REQUEST FOR BODY ACHE. WILL CONTINUE TO MONITOR.
[2020-08-08 04:00] VITALS: BP 159/106
[2020-08-08] MEDS: HYDROCODONE/APAP 10/325MG TABLET PO PRN ×3 (04:16→20:22)
--- NOTE | 2020-08-08 04:16 | NUR ---
ms rn note administered prn norco10 for pain 7/10 in left thigh. vitals signs increased. 160/106 hr 114. will continue to monitor.
[2020-08-08 05:47] VITALS: BP 147/82
[2020-08-08 05:53] LABS: BASOPHILS % (AUTO) 0.1 % (0.0-2.0); EOSINOPHILS % (AUTO) 0.2 % (0.0-6.0); HEMATOCRIT 28 % (39-51); HEMOGLOBIN 9.4 g/dL (13.5-17.5); LYMPHOCYTES # (AUTO) 1.2 /CMM (0.8-4.8); LYMPHOCYTES % (AUTO) 4.8 % (20.0-44.0); MEAN CORPUSCULAR HGB CONC 33 g/dl (31.0-36.0); MEAN CORPUSCULAR VOLUME 88 fL (80-96); MONOCYTES # (AUTO) 1.1 /CMM (0.1-1.30); MONOCYTES % (AUTO) 4.1 % (2.0-12.0); NEUTROPHILS # (AUTO) 23.5 /CMM (1.8-8.9); NEUTROPHILS % (AUTO) 90.8 % (43.0-81.0); PLATELET COUNT (AUTO) 581 /CMM (150-450); RED BLOOD CELL COUNT(AUTO) 3.22 MIL/uL (4.5-6.0); WHITE BLOOD COUNT (AUTO) 25.9 K/uL (4.3-11.0)
[2020-08-08 06:08] LABS: CALCIUM, SERUM 7.7 mg/dL (8.5-10.1); CREATININE 0.6 mg/dL (0.6-1.3); MAGNESIUM 1.7 mg/dL (1.8-2.4); PHOSPHORUS 2.8 mg/dL (2.5-4.9); POTASSIUM 3.7 mmol/L (3.5-5.1)
--- NOTE | 2020-08-08 06:51 | NUR ---
MS RN CLOSING NOTE PATIENT RESTING IN BED. A/OX 2. TOLERATING ROOM AIR. NO RESP DISTRESS. MANAGED PAIN WITH TYLENOL AND NORCO10. NO DISTRESS. IV ACCESS MAINTAINED IN SOPHIE#20 PATENT AND SALINE LOCKED. BED REMAINS LOW AND LOCKED, HOB ELEVATED IN SEMI FOWLERS, SIDE RAILS UP X3. CALL LIGHT WITHIN REACH. WILL ENDORSE TO NEXT SHIFT.
--- NOTE | 2020-08-08 07:30 | NUR ---
RN OPENING NOTE MEDSURG PT LYING IN BED SEMIFOWLER'S, AWAKE, A/Ox2 BREATHING RA SPO2 99% WITH NO SIGNS OF RESP DISTRESS OR SOB. PT STATES LT LEG PAIN 7/10, PAIN MEDS TO BE ADMINISTERED PER PROTOCOL. PT HAS SOPHIE #20, INTACT, FLUSHED AND PATENT, NO SIGNS OF INFILTRATION OR INFECTION. WILL CONTINUE NS ORDERED. PT HAS BLE EDEMA, +2 ON RT AND +3 ON LT. PT POSITIVE FOR DVT IN BLE. PT HAS LT BUTTOCKS/THIGH WOUND COVERED IN HYDROGEL PER MD ORDER. PT SAFETY PRECAUTIONS IN PLACE- BED LOCKED AND IN LOWEST POSITION, CALL LIGHT WITHIN REACH, SR UP x3. WILL CONTINUE TO MONITOR
[2020-08-08] MEDS: IV NS 0.9% 1,000 ML IV PRN (07:59)
[2020-08-08] MEDS: ACETAMINOPHEN 325 MG TABLET PO PRN ×3 (08:21→22:21)
[2020-08-08] MEDS: NICOTINE PATCH (21MG) 21 MG PATCH.TD24 TD SCH (08:21)
[2020-08-08] MEDS: VALSARTAN 80 MG TABLET PO SCH (08:22)
[2020-08-08] MEDS: RIVAROXABAN 15 MG TABLET PO SCH (08:22)
[2020-08-08 08:30] VITALS: BP 141/100
[2020-08-08] MEDS: HYDROGEL DRESSING 90 GM TUBE TP SCH (10:02)
[2020-08-08 10:07] LABS: IMMUNOGLOBULIN A, SERUM 88 mg/dL (90-386); IMMUNOGLOBULIN G, SERUM 1520 mg/dL (603-1613)
[2020-08-08] MEDS: DAKINS FULL STRENGTH (0.5%) 480 ML BOTTLE TOP SCH (11:15)
--- NOTE | 2020-08-08 11:30 | NUR ---
RN NOTE PER MINISTERIO BRIAN TO D/C IV FLUIDS
[2020-08-08] MEDS: Magnesium 1GM/D5W 100ML PREMIX 100 ML IV SCH ×2 (11:46→12:51)
--- NOTE | 2020-08-08 12:09 | NUR ---
ms rn note Ruben rn dnp aware that patient has dvt rt and lt leg ok to hold pt tx for today and also ok to do flu vaccine upon d\c aware that earlier was sweating and c\o pain ,on [place] prn will recheck cbc at 1600 to recheck hg and restart Lovenox will f\u
[2020-08-08] MEDS: LORAZEPAM INJ 2 MG/ML VIAL IV PRN (14:49)
--- NOTE | 2020-08-08 14:54 | NUR ---
ms rn note darryn lead applier for cloth finishing range tender at bedside, patient condition updated ,will f\u with cbc at 16 00
--- NOTE | 2020-08-08 14:58 | NUR ---
RN NOTE PT BECAME AGITATED AND AGGRESSIVE, COMPLAINING OF A SNAKE BITE 2 WEEKS AGO, POSSIBLY HALLUCINATING. ADMINISTERED ATIVAN PER MD ORDER ALONG WITH TYLENOL FOR PAIN. WILL CONTINUE TO MONITOR
--- NOTE | 2020-08-08 15:10 | NUR ---
RN NOTE PER PT, WORRIED ABOUT CONTACTING SENIOR INSIGHT MANAGER. CALLED TIME BROKER SRINIVAS AND SHE WILL FOLLOW UP
[2020-08-08 15:17] LABS: *SPE A/G RATIO 0.5 (0.7-1.7); *SPE ALBUMIN 1.7 g/dL (2.9-4.4); *SPE ALPHA-1-GLOBULIN 0.5 g/dL (0.0-0.4); *SPE ALPHA-2-GLOBULIN 0.9 g/dL (0.4-1.0); *SPE BETA GLOBULIN 0.8 g/dL (0.7-1.3); *SPE GLOBULIN, TOTAL 3.6 g/dL (2.2-3.9); *SPE M-SPIKE Not Observed g/dL (Not Observed); *SPEGAMMA GLOBULIN 1.4 g/dL (0.4-1.8)
--- NOTE | 2020-08-08 15:31 | NUR ---
RN NOTE PT AGITATED AND AGGRESSIVE EARLIER. CALLED [facility]. FAXED FACESHEET TO [facility] Addendum: 08/08/20 at 1609 by GABBY BREAUX RN sukhjinder from case aide, seen patient at bedside working on his juvenile probation officer , ele bradley
[2020-08-08 16:00] VITALS: BP 153/85
[2020-08-08 16:08] LABS: HEMOGLOBIN 9.2 g/dL (13.5-17.5)
--- NOTE | 2020-08-08 16:19 | NUR ---
ANIA followed up with the patient regarding patient wanting to speak to his chief informatics officer. [facility] [id number] [place] [address] SW was unable to speak to chemical sales representative. ANIA left voicemail with callback number. ANIA remains available for all needs regarding this patient.
[2020-08-08] MEDS: CEFTRIAXONE 1 G in IV D5W 50 ML IV SCH (17:10)
--- NOTE | 2020-08-08 18:24 | NUR ---
RN CLOSING NOTE PT RESTING IN BED COMFORTABLY, NO SIGNS OF RESP DISTRESS OR SOB. PT ABLE TO FEED HIMSELF. LEFT MSG TO BAN ABOUT H&H RESULT, AWAITING RESPONSE. SAFETY PRECAUTIONS IN PLACE- BED LOCKED AND IN LOWEST POSITION, BED ALARM ON, CALL LIGHT WITHIN REACH, SR UP x2. WILL ENDORSE ARAM TO ONCOMING NURSE.
--- NOTE | 2020-08-08 18:32 | NUR ---
RN NOTE BAN RESPONDED REAGARDING H&H, SHE WILL DISCUSS WITH DR. COTTRELL REGARDING LOVENOX AND PLACE ORDERS ACCORDINGLY
--- NOTE | 2020-08-08 18:54 | NUR ---
RN NOTE PER DIP FILLER SEBASTIAN CEVALLOS SCHEDULED FOR [address]
[2020-08-08 20:00] VITALS: BP 154/97
[2020-08-08] MEDS ORDERED: ENOXAPARIN SODIUM 40 MG/0.4 ML DISP.SYRIN SQ SCH (21:00)
[2020-08-09] MEDS: HYDROCODONE/APAP 10/325MG TABLET PO PRN ×3 (02:24→20:52)
[2020-08-09 06:05] LABS: BASOPHILS # (AUTO) 0.1 /CMM (0.0-0.2); BASOPHILS % (AUTO) 0.2 % (0.0-2.0); EOSINOPHILS % (AUTO) 0.2 % (0.0-6.0); HEMATOCRIT 29 % (39-51); HEMOGLOBIN 9.6 g/dL (13.5-17.5); LYMPHOCYTES # (AUTO) 1.1 /CMM (0.8-4.8); LYMPHOCYTES % (AUTO) 4.9 % (20.0-44.0); MEAN CORPUSCULAR HGB CONC 33 g/dl (31.0-36.0); MEAN CORPUSCULAR VOLUME 88 fL (80-96); MONOCYTES # (AUTO) 1.1 /CMM (0.1-1.30); NEUTROPHILS # (AUTO) 20.7 /CMM (1.8-8.9); NEUTROPHILS % (AUTO) 89.7 % (43.0-81.0); PLATELET COUNT (AUTO) 641 /CMM (150-450); RED BLOOD CELL COUNT(AUTO) 3.27 MIL/uL (4.5-6.0)
[2020-08-09 06:30] LABS: CALCIUM, SERUM 8.1 mg/dL (8.5-10.1); CREATININE 0.5 mg/dL (0.6-1.3); POTASSIUM 4.1 mmol/L (3.5-5.1)
[2020-08-09 08:00] VITALS: BP 153/108
[2020-08-09] MEDS: VALSARTAN 80 MG TABLET PO SCH (08:57)
[2020-08-09] MEDS: NICOTINE PATCH (21MG) 21 MG PATCH.TD24 TD SCH (08:57)
[2020-08-09] MEDS: ENOXAPARIN SODIUM 80 MG/0.8 ML DISP.SYRIN SQ SCH ×2 (09:15→20:52)
[2020-08-09] MEDS: DAKINS FULL STRENGTH (0.5%) 480 ML BOTTLE TOP SCH (09:15)
[2020-08-09] MEDS: HYDROGEL DRESSING 90 GM TUBE TP SCH (09:15)
--- NOTE | 2020-08-09 09:46 | NUR ---
RN OPENING NOTE PT AWAKE IN BED A/Ox2, SEMIFOWLER'S, BREATHING EVEN AND UNLABORED ON RA, NO SIGNS OF RESP DISTRESS OR SOB. PT STATES 10/10 PAIN, WILL ADMIN PAIN MEDS PER PROTOCOL. PT HAS LT COMMON FEMORAL AND POPLITEAL ALONG WITH RT POPLITEAL DVT. PT HAS A LT BUTTOCK WOUND COVERED WITH HYDROGEL AND MEPILEX, CLEAN DRY AND INTACT. PT HAS SOPHIE #20, FLUSHED, PATENT AND SALINE LOCKED, NO SIGNS OF INFILTRATION OR INFECTION. PT SAFETY PRECAUTIONS IN PLACE- EBD LOCKED AND IN LOWEST POSITION, SR UP x2, CALL LIGHT WITHIN REACH. WILL CONTINUE TO MONITOR
--- NOTE | 2020-08-09 09:53 | NUR ---
RN NOTE FERNANDEZ LANDAVERDE PUT IN ORDER FOR LOVENOX 80MG SQ. H&H IS STABLE. WILL ADMIN PER ORDER Addendum: 08/09/20 at 0955 by ALICE GUTIERREZ RN NOTE WAS FOR 0900. DID ADMIN SHORTLY AFTER THIS TIME
[2020-08-09] MEDS: ACETAMINOPHEN 325 MG TABLET PO PRN (10:09)
[2020-08-09] MEDS: QUETIAPINE FUMARATE 100 MG TABLET PO SCH ×2 (11:51→17:16)
[2020-08-09 16:00] VITALS: BP 134/84
[2020-08-09] MEDS: FERROUS SULFATE (325 MG) 325 MG/TAB TABLET PO SCH (17:16)
[2020-08-09] MEDS: CEFTRIAXONE 1 G in IV D5W 50 ML IV SCH (17:17)
--- NOTE | 2020-08-09 19:25 | NUR ---
RN CLOSING NOTE PT RESTING IN BED COMFORTABLY. PT ON RA, NO SIGNS OF RESP DISTRESS OR SOB. PT WAS ORDERED SEROQUEL 100MG PER PSYCHIATRIST ORDER. PT TOLERATING WELL. SAFETY PRECAUTIONS IN PLACE- BED LOCKED AND IN LOWEST POSITION, BED ALARM ON, CALL LIGHT WITHIN REACH, SR UP x2. WILL ENDORSE ARAM TO ONCOMING NURSE.
[2020-08-09 20:00] VITALS: BP 116/79
--- NOTE | 2020-08-09 20:00 | NUR ---
RN NOTES PATIENT AWAKE IN BED A/Ox2. ABLE TO MAKE NEEDS KNOWN. BREATHING EVEN AND UNLABORED. ON ROOM AIR, O2 SAT 99%, NO SIGNS OF RESP DISTRESS OR SOB. DENIES ANY PAIN AT THIS TIME. PATIENT HAS LEFT COMMON FEMORAL AND POPLITEAL ALONG WITH RIGHT POPLITEAL DVT. PATIENT HAS A LEFT BUTTOCK WOUND COVERED WITH HYDROGEL AND MEPILEX, CLEAN DRY AND INTACT. PT HAS SOPHIE #20, FLUSHED, PATENT AND SALINE LOCKED, NO SIGNS OF INFILTRATION OR INFECTION. BED LOCKED AND IN LOWEST POSITION. SIDE RAILS UP X2. ALL SAFETY MEASURES IMPLEMENTED. CALL LIGHT WITHIN REACH. WILL CONTINUE TO MONITOR.
[2020-08-09] MEDS: LORAZEPAM INJ 2 MG/ML VIAL IV PRN (22:01)
[2020-08-10] MEDS: HYDROCODONE/APAP 10/325MG TABLET PO PRN ×3 (03:09→16:57)
[2020-08-10 04:00] VITALS: BP 143/110
[2020-08-10 06:05] LABS: BASOPHILS # (AUTO) 0.1 /CMM (0.0-0.2); BASOPHILS % (AUTO) 0.4 % (0.0-2.0); EOSINOPHILS % (AUTO) 0.2 % (0.0-6.0); HEMATOCRIT 28 % (39-51); HEMOGLOBIN 9.3 g/dL (13.5-17.5); LYMPHOCYTES # (AUTO) 1.4 /CMM (0.8-4.8); LYMPHOCYTES % (AUTO) 6.9 % (20.0-44.0); MEAN CORPUSCULAR HGB CONC 33 g/dl (31.0-36.0); MEAN CORPUSCULAR VOLUME 88 fL (80-96); MONOCYTES # (AUTO) 1.1 /CMM (0.1-1.30); MONOCYTES % (AUTO) 5.3 % (2.0-12.0); NEUTROPHILS # (AUTO) 17.7 /CMM (1.8-8.9); NEUTROPHILS % (AUTO) 87.2 % (43.0-81.0); PLATELET COUNT (AUTO) 747 /CMM (150-450); RED BLOOD CELL COUNT(AUTO) 3.18 MIL/uL (4.5-6.0); WHITE BLOOD COUNT (AUTO) 20.3 K/uL (4.3-11.0)
[2020-08-10 06:39] LABS: CALCIUM, SERUM 8.2 mg/dL (8.5-10.1); CREATININE 0.5 mg/dL (0.6-1.3)
--- NOTE | 2020-08-10 07:28 | NUR ---
RN NOTES PATIENT AWAKE IN BED A/Ox2. ABLE TO MAKE NEEDS KNOWN. ON ROOM AIR, O2 SAT 99%, NO SIGNS OF RESP DISTRESS OR SOB. PATIENT HAS LEFT COMMON FEMORAL AND POPLITEAL ALONG WITH RIGHT POPLITEAL DVT. PATIENT HAS A LEFT BUTTOCK WOUND COVERED WITH HYDROGEL AND MEPILEX, CLEAN DRY AND INTACT. PT HAS RIGHT WRIST #22, INTACT AND PATENT. NO SIGNS OF INFILTRATION OR INFECTION. BED LOCKED AND IN LOWEST POSITION. SIDE RAILS UP X2. ALL SAFETY MEASURES IMPLEMENTED. CALL LIGHT WITHIN REACH. ENDORSED TO NEXT SHIFT.
--- NOTE | 2020-08-10 07:30 | NUR ---
RN OPENING NOTES PATIENT PRESENT IN BED, A/OX3, ON ROOM AIR, NO SOB OR RESP DISTRESS NOTED, SPO2 IS 98%, COMPLAINS ON PAIN 10/10, DVT IS NOTED BILATERAL, SACRUM WOUND NOTED, R WRIST IV LINE NOTED , PATENT AND INTACT, FLUSHED WELL, SAFETY MEASURES IMPLEMENTED, CALL LIGHT IN REACH, WILL CONT TO MONITOR CLOSELY
[2020-08-10] MEDS: ACETAMINOPHEN 325 MG TABLET PO PRN (07:57)
[2020-08-10 08:00] VITALS: BP_SYST 154; BP_SYST 158; BP_DIAS 109; BP_DIAS 96
[2020-08-10] MEDS: NICOTINE PATCH (21MG) 21 MG PATCH.TD24 TD SCH (08:21)
[2020-08-10] MEDS: VALSARTAN 80 MG TABLET PO SCH (08:22)
[2020-08-10] MEDS: FERROUS SULFATE (325 MG) 325 MG/TAB TABLET PO SCH ×2 (08:22→16:57)
[2020-08-10] MEDS: QUETIAPINE FUMARATE 100 MG TABLET PO SCH ×2 (08:22→16:57)
[2020-08-10] MEDS: HYDROGEL DRESSING 90 GM TUBE TP SCH (08:23)
[2020-08-10] MEDS: DAKINS FULL STRENGTH (0.5%) 480 ML BOTTLE TOP SCH (08:23)
[2020-08-10] MEDS: ENOXAPARIN SODIUM 80 MG/0.8 ML DISP.SYRIN SQ SCH ×2 (09:45→20:26)
--- NOTE | 2020-08-10 09:50 | NUR ---
refused Lovenox at this time, will place in pt's casset
[2020-08-10 12:00] VITALS: BP 123/85
[2020-08-10] MEDS: CEFTRIAXONE 1 G in IV D5W 50 ML IV SCH (16:57)
--- NOTE | 2020-08-10 18:57 | NUR ---
RN CLOSING NOTES PATIENT REMAINS IN BED, TOLERATING TREATMENT WELL, COMFORT NEEDS PROVIDED, MEDICATIONS GIVEN, SAFETY MEASURES IN PLACE, WILL ENDORSE TO PM SHIFT RN FOR ARAM
--- NOTE | 2020-08-10 19:30 | NUR ---
RN NOTE RECEIVED PT SLEEPING IN BED IN SUPINE POSITION. PT IS ON ROOM AIR. RESPIRATIONS EVEN AND UNLABORED, NO SIGNS OF PAIN OR DISCOMFORT. URINAL REACHABLE AT BEDSIDE. IV SITE ON RIGHT HAND PATENT AND WITHOUT SIGNS OF COMPLICATIONS. CALL LIGHT WITHIN REACH, SAFETY MEASURES IMPLEMENTED, BED ALARM ON, BED LOCKED AND IN LOW POSITION, SIDE RAILS UP X 2, WILL MONITOR PATIENT.
[2020-08-10 20:00] VITALS: BP 120/86
--- NOTE | 2020-08-10 22:30 | NUR ---
RN NOTE SPOKE TO DR. COTTRELL ON THE PHONE AND GAVE UPDATE ON PT'S STATUS.
[2020-08-11] MEDS: HYDROCODONE/APAP 10/325MG TABLET PO PRN ×4 (00:02→21:29)
--- NOTE | 2020-08-11 03:30 | NUR ---
RN NOTE PT WAS OFFERED BED BATH AND LINEN CHANGE. PT REFUSED AT THIS TIME AND STATED "I WILL LET YOU KNOW WHEN."
[2020-08-11 04:00] VITALS: BP 128/85
[2020-08-11] MEDS: ACETAMINOPHEN 325 MG TABLET PO PRN (04:28)
--- NOTE | 2020-08-11 06:00 | NUR ---
RN NOTE PT REFUSED BED BATH BUT ALLOWED FOR COMPLETE LINEN CHANGE AND GOWN CHANGE TO BE DONE.
--- NOTE | 2020-08-11 07:06 | NUR ---
RN NOTE NO ACUTE CHANGES OBSERVED OVERNIGHT. ENDORSED PT TO MORNING RN FOR ARAM.
--- NOTE | 2020-08-11 07:30 | NUR ---
RN OPENING NOTES PATIENT PRESENT IN BED, A/OX3, ON ROOM AIR, NO SOB OR RESP DISTRESS NOTED, SPO2 IS 98%, C DVT IS NOTED BILATERAL, SACRUM WOUND NOTED, R WRIST IV LINE NOTED , PATENT AND INTACT, FLUSHED WELL, SAFETY MEASURES IMPLEMENTED, CALL LIGHT IN REACH, WILL CONT TO MONITOR CLOSELY
[2020-08-11 08:00] VITALS: BP 142/95
[2020-08-11] MEDS: FERROUS SULFATE (325 MG) 325 MG/TAB TABLET PO SCH ×2 (08:16→16:35)
[2020-08-11] MEDS: NICOTINE PATCH (21MG) 21 MG PATCH.TD24 TD SCH (08:17)
[2020-08-11] MEDS: VALSARTAN 80 MG TABLET PO SCH (08:17)
[2020-08-11] MEDS: QUETIAPINE FUMARATE 100 MG TABLET PO SCH ×2 (08:17→16:35)
[2020-08-11] MEDS: ENOXAPARIN SODIUM 80 MG/0.8 ML DISP.SYRIN SQ SCH (08:18)
[2020-08-11] MEDS: HYDROGEL DRESSING 90 GM TUBE TP SCH (08:18)
[2020-08-11] MEDS: DAKINS FULL STRENGTH (0.5%) 480 ML BOTTLE TOP SCH (08:18)
[2020-08-11 09:04] LABS: BASOPHILS # (AUTO) 0.2 /CMM (0.0-0.2); BASOPHILS % (AUTO) 1.1 % (0.0-2.0); EOSINOPHILS % (AUTO) 0.2 % (0.0-6.0); HEMATOCRIT 29 % (39-51); HEMOGLOBIN 9.2 g/dL (13.5-17.5); LYMPHOCYTES # (AUTO) 1.2 /CMM (0.8-4.8); MEAN CORPUSCULAR HGB CONC 32 g/dl (31.0-36.0); MEAN CORPUSCULAR VOLUME 89 fL (80-96); NEUTROPHILS # (AUTO) 14.2 /CMM (1.8-8.9); NEUTROPHILS % (AUTO) 85.7 % (43.0-81.0); PLATELET COUNT (AUTO) 853 /CMM (150-450); RED BLOOD CELL COUNT(AUTO) 3.26 MIL/uL (4.5-6.0); WHITE BLOOD COUNT (AUTO) 16.6 K/uL (4.3-11.0)
[2020-08-11 12:00] VITALS: BP 142/95
--- NOTE | 2020-08-11 13:40 | NUR ---
complains on severe pain l knee 06/24, will administer PRN meds
--- NOTE | 2020-08-11 14:30 | NUR ---
TRANSFERED TO ROOM 323-2VIA BED ACCORDING TO PROTOCOL
[2020-08-11 16:00] VITALS: BP 146/104
[2020-08-11] MEDS: RIVAROXABAN 15 MG TABLET PO SCH (16:36)
[2020-08-11] MEDS: CEFTRIAXONE 1 G in IV D5W 50 ML IV SCH (18:29)
--- NOTE | 2020-08-11 19:09 | NUR ---
RN CLOSING NOTES PATIENT REMAINS IN BED, TOLERATING TREATMENTS WELL, WAS SEEING BY PT TODAY WASN'T ABLE TO TOLERATE, COMFORT NEEDS PROVIDED, MEDICATIONS GIVEN, SAFETY MEASURES IN PLACE, WILL ENDORSE TO PM SHIFT RN FOR ARAM
--- NOTE | 2020-08-11 19:30 | NUR ---
MS/RN OPENING NOTES RECEIVED PATIENT IN BED RESTING. PATIENT IS ALERT AND ORIENTED X 2-3. NO SIGNS OF SOB OR RESPIRATORY DISTRESS NOTED. PATIENT IS STABLE ON ROOM AIR. STATES NO PAIN AT THIS TIME. PATIENT HAS IV ACCESS ON RIGHT WRIST #22 G, INTACT AT THIS TIME. SAFETY MEASURES ARE IN PLACE, BES IS LOCKED AND PLACED IN THE LOW POSITION, SIDE RAILS UP X 2. CALL LIGHT IS WITHIN REACH. WILL CONTINUE TO MONITOR.
[2020-08-11 20:00] VITALS: BP 134/92
--- NOTE | 2020-08-11 21:35 | NUR ---
MS/RN NOTES PATIENT STATING PAIN AT LEGS. NORCO 10 PO WAS GIVEN. V/S ARE STABLE. WILL CONTINUE TO MONITOR.
[2020-08-12] MEDS: ACETAMINOPHEN 325 MG TABLET PO PRN ×3 (02:31→21:56)
--- NOTE | 2020-08-12 02:35 | NUR ---
MS/RN NOTES PATIENT STATING PAIN AT LEGS. TYLENOL 650MG WAS GIVEN. V/S ARE STABLE. WILL CONTINUE TO MONITOR.
--- NOTE | 2020-08-12 06:50 | NUR ---
MS/RN CLOSING NOTES PATIENT IN BED RESTING. PATIENT IS ALERT AND ORIENTED X 2-3. NO SIGNS OF SOB OR RESPIRATORY DISTRESS NOTED. PATIENT IS STABLE ON ROOM AIR. PATIENT HAS IV ACCESS ON RIGHT WRIST #22 G, INTACT AT THIS TIME. PATIENT DECLINED MORNING CARE ROUTINE AND BED SHEET CHANGE. SAFETY MEASURES ARE IN PLACE, BED IS LOCKED AND PLACED IN THE LOW POSITION, SIDE RAILS UP X 2. CALL LIGHT IS WITHIN REACH. WILL ENDORSE CARE TO DAY SHIFT.
--- NOTE | 2020-08-12 07:52 | NUR ---
MS RN NOTE: PT RECEIVED IN BED, ALERT AND ORIENTED X 3, ASKING FOR BREAKFAST. PT IS ON RA, NO SOB OR RESPIRATORY DISTRESS NOTED. PT IS POSITIVE FOR BL LOWER DVT. PT BEDREST USING URINAL, HAS LEFT BUTTOCKS WOUND COVERED WITH MEPILEX . PT ON SOFT DIET. PT HAS R WRIST #22 SL. BED IN LOCKED LOWEST POSITION. CALL LIGHT WITHIN REACH. ALL SAFETY MEASURES IN PLACE. WILL CONTINUE TO MONITOR CLOSELY.
[2020-08-12 08:00] VITALS: BP 153/99
[2020-08-12 09:20] LABS: BASOPHILS % (AUTO) 0.3 % (0.0-2.0); EOSINOPHILS % (AUTO) 0.5 % (0.0-6.0); HEMATOCRIT 29 % (39-51); HEMOGLOBIN 9.7 g/dL (13.5-17.5); LYMPHOCYTES # (AUTO) 1.1 /CMM (0.8-4.8); LYMPHOCYTES % (AUTO) 8.1 % (20.0-44.0); MEAN CORPUSCULAR HGB CONC 33 g/dl (31.0-36.0); MEAN CORPUSCULAR VOLUME 88 fL (80-96); MONOCYTES % (AUTO) 7.6 % (2.0-12.0); NEUTROPHILS % (AUTO) 83.5 % (43.0-81.0); PLATELET COUNT (AUTO) 870 /CMM (150-450); RED BLOOD CELL COUNT(AUTO) 3.29 MIL/uL (4.5-6.0); WHITE BLOOD COUNT (AUTO) 13.2 K/uL (4.3-11.0)
[2020-08-12 09:32] LABS: CALCIUM, SERUM 8.9 mg/dL (8.5-10.1); CREATININE 0.5 mg/dL (0.6-1.3); POTASSIUM 3.8 mmol/L (3.5-5.1)
[2020-08-12] MEDS: NICOTINE PATCH (21MG) 21 MG PATCH.TD24 TD SCH (09:53)
[2020-08-12] MEDS: QUETIAPINE FUMARATE 100 MG TABLET PO SCH ×2 (09:53→17:21)
[2020-08-12] MEDS: FERROUS SULFATE (325 MG) 325 MG/TAB TABLET PO SCH ×2 (09:53→17:21)
[2020-08-12] MEDS: VALSARTAN 80 MG TABLET PO SCH (09:54)
[2020-08-12] MEDS: RIVAROXABAN 15 MG TABLET PO SCH ×2 (09:57→17:22)
[2020-08-12] MEDS: DAKINS FULL STRENGTH (0.5%) 480 ML BOTTLE TOP SCH (10:07)
[2020-08-12] MEDS: HYDROGEL DRESSING 90 GM TUBE TP SCH (10:08)
[2020-08-12] MEDS: HYDROCODONE/APAP 10/325MG TABLET PO PRN ×2 (10:46→21:04)
[2020-08-12 11:06] LABS: IMMUNOGLOBULIN M, SERUM 48 mg/dL (20-172)
[2020-08-12 16:00] VITALS: BP 127/85
--- NOTE | 2020-08-12 17:50 | NUR ---
PT REFUSED WOUND CARE, PREFERS TO DO IT "LATER"
--- NOTE | 2020-08-12 18:00 | NUR ---
PT RIGHT WRIST 22 DISLODGED. NEW LFA #22 STARTED, INTACT AND FLUSHED WELL
[2020-08-12] MEDS: CEFTRIAXONE 1 G in IV D5W 50 ML IV SCH (18:22)
--- NOTE | 2020-08-12 19:38 | NUR ---
MS RN CLOSING NOTE: NO CHANGE IN PT CONDITION, AWAITING SNF PLACEMENT. PT AO X 4, ON ROOM AIR O2 [id number]% NO RESPIRATORY DISTRESS OR SOB. PT USES URINAL, 1000 ML OUTPUT THIS SHIFT. PT EATS 100% BREAKFAST, LUNCH, DINNER, SOFT DIET WITH SNACKS AND JUICES. PT HAS LFA #22 RUNNING ROCEPHIN ABX. NO SIGNS OF INFECTION OR INFILTRATION. PT IN BED LOCKED LOWEST POSITION. CALL LIGHT WITHIN REACH. ALL SAFETY MEASURES IN PLACE. PT REFUSED WOUND TX MULTIPLE TIMES THIS SHIFT. ENDORSED TO ONCOMING RN. REPORT GIVEN TO ONCOMING RN FOR ARAM
--- NOTE | 2020-08-12 19:38 | NUR ---
MS RN OPENING NOTES PATIENT AWAKE IN BED. A/OX3. STABLE ON RA; NO C/O SOB, BREATHING IS EVEN AND UNLABORED. NO C/O PAIN AT THIS TIME. IV PRESENT ON LEFT FA, SIZE 22, INTACT & PATENT WITH NS RUNNING TKO. SAFETY MEASURES IN PLACE AND PATIENT'S NEEDS MET. BED LOCKED, ALARM ON, SIDE RAILS X2, CALL LIGHT WITHIN REACH. WILL CONTINUE TO MONITOR.
[2020-08-12 20:00] VITALS: BP 116/78
[2020-08-13] MEDS: HYDROCODONE/APAP 10/325MG TABLET PO PRN (04:52)
--- NOTE | 2020-08-13 07:39 | NUR ---
MS RN CLOSING NOTES PATIENT REMAINED STABLE DURING SHIFT, NO ADVERSE EVENTS. NO S/S OF SOB OR C/O PAIN. IV ON LEFT FA, SIZE 22, INTACT & PATENT. SAFETY MEASURES IN PLACE AND PATIENT'S MET. BED LOCKED, ALARM ON, SIDE RAILS X2, CALL LIGHT WITHIN REACH. WILL ENDORSE TO DAY SHIFT RN PLAN OF CARE.
[2020-08-13 09:16] VITALS: BP 156/100
[2020-08-13] MEDS: QUETIAPINE FUMARATE 100 MG TABLET PO SCH (09:16)
[2020-08-13] MEDS: VALSARTAN 80 MG TABLET PO SCH (09:16)
[2020-08-13] MEDS: FERROUS SULFATE (325 MG) 325 MG/TAB TABLET PO SCH (09:16)
[2020-08-13] MEDS: NICOTINE PATCH (21MG) 21 MG PATCH.TD24 TD SCH (09:16)
[2020-08-13] MEDS: RIVAROXABAN 15 MG TABLET PO SCH (09:17)
[2020-08-13] MEDS: DAKINS FULL STRENGTH (0.5%) 480 ML BOTTLE TOP SCH (09:24)
[2020-08-13] MEDS: HYDROGEL DRESSING 90 GM TUBE TP SCH (09:24)
--- NOTE | 2020-08-13 14:00 | NUR ---
MS RN NOTES PATIENT REFUSED DISCHARGE PICTURES. STATING TO LEAVE HIM ALONE. HE JUST WANTS TO REST AND HE WANTS TO SMOKE.
--- NOTE | 2020-08-13 14:10 | NUR ---
MS RN NOTES CALL RECEIVED FROM LAB REPORTING NEGATIVE COVID RESULTS. NOTED WAITING FOR DISCHARGE ORDER .
--- NOTE | 2020-08-13 14:45 | NUR ---
MS RN NOTES PATIENT DISCHARGED TO [facility] IN STABLE CONDITION. PATIENT ALERT, ORIENTED NONE COMPLIANT WITH CARE. MD AWARE OF ALL ABNORMAL LABS AND TESTS. DISCHARGE PROTOCOL FOLLOWED. DISCHARGE INSTRUCTIONS PROVIDED VERBALIZED UNDERSTANDING. PERIPHERAL IV INTACT PATENT, LEFT IN PLACE TO CONTINUE IV ATB AT NURSING FACILITY. PATIENT REFUSED DISCHARGE PICTURES. REPORT GIVEN TO YUAN AT SNF. ALL BELONGINGS ACCOUNTED FOR , BELONGING LIST SIGNED. PATIENT DISCHARGED WITH EMT VIA AMBULANCE.
== END 2020-08-13 14:45 | DRG 720 ==
LOC: ER 09:25 → ICU 14:49 → MEDSG1 23:57 → TELE1 08-02 20:36 → MEDSG1 08-04 09:22 → MED 08-11 14:45
PROVIDERS: ADMIT Nurse Practitioner Acute Care; ATTEND Nurse Practitioner Acute Care
DX: A40.0 Sepsis due to streptococcus, group A (principal); N39.0 Urinary tract infection, site not specified; J18.9 Pneumonia, unspecified organism; G92 Toxic encephalopathy; N17.0 Acute kidney failure with tubular necrosis; M62.82 Rhabdomyolysis; E87.1 Hypo-osmolality and hyponatremia; F17.210 Nicotine dependence, cigarettes, uncomplicated; D69.6 Thrombocytopenia, unspecified; E44.0 Moderate protein-calorie malnutrition; D64.9 Anemia, unspecified; Z59.0 Homelessness; E87.2 Acidosis; F39 Unspecified mood [affective] disorder; Z88.0 Allergy status to penicillin; F12.10 Cannabis abuse, uncomplicated; F20.9 Schizophrenia, unspecified; F15.10 Other stimulant abuse, uncomplicated; E86.1 Hypovolemia; N13.9 Obstructive and reflux uropathy, unspecified; E87.8 Other disorders of electrolyte and fluid balance, not elsewhere classified; Z68.21 Body mass index [BMI] 21.0-21.9, adult; I82.412 Acute embolism and thrombosis of left femoral vein; I82.432 Acute embolism and thrombosis of left popliteal vein; I10 Essential (primary) hypertension; I82.431 Acute embolism and thrombosis of right popliteal vein; L89.323 Pressure ulcer of left buttock, stage 3
CPT/HCPCS: 36415; 36600; 71045-TC; 71250-TC; 80048-TC; 80053-TC; 80076-TC; 80202-TC; 81001; 82550-TC; 82728-TC; 82784; 82962-TC; 83540-TC; 83605-TC; 83690-TC; 83735-TC; 83935-TC; 84100-TC; 84155; 84165; 84300-TC; 85025-TC; 85027-TC; 85652-TC; 86140-TC; 86334; 86706; 86803; 87040-TC; 87070-TC; 87081-TC; 87086-TC; 87186-TC; 87340; 87806; 93307-TC; 93971-TC; 97112-TC; 97530-TC; A4216; A4349; A6248; G0378; G0480; J0696; J1650; J1956; J2060; J3370; J3475; J3490; J7030; J7050; J7060; U0003

== ENCOUNTER 2020-08-15 03:20 | Inpatient (IN) | payer MEDICAID ==
[~2020-08-15] VITALS: Ht 188 cm; Wt 84.4 kg
--- NOTE | 2020-08-15 03:25 | NUR ---
PT BIBEMS FROM STREET C/O GENERALIZED WEAKNESS. PER PT, "I WAS UNABLE TO WALK SINCE YESTERDAY." PT AAOX4, VSS, RESPIRATIONS EVEN AND UNLABORED ON RA W/ NAD NOTED. PT CONNECTED TO THE PIANO MACHINE OPERATOR AND POX
[2020-08-15] MEDS ORDERED: IV NS 0.9% 1,000 ML BAG IV ONE (04:00)
[2020-08-15 04:10] LABS: CALCIUM, SERUM 9.3 mg/dL (8.5-10.1); CREATININE 0.5 mg/dL (0.6-1.3); LYMPHOCYTES # (AUTO) 1.3 /CMM (0.8-4.8); LYMPHOCYTES % (AUTO) 10.2 % (20.0-44.0); POTASSIUM 3.5 mmol/L (3.5-5.1)
[2020-08-15 04:13] LABS: BASOPHILS % (AUTO) 0.2 % (0.0-2.0); EOSINOPHILS % (AUTO) 0.7 % (0.0-6.0); HEMATOCRIT 31 % (39-51); MEAN CORPUSCULAR HGB CONC 33 g/dl (31.0-36.0); MEAN CORPUSCULAR VOLUME 89 fL (80-96); MONOCYTES # (AUTO) 0.9 /CMM (0.1-1.30); MONOCYTES % (AUTO) 7.3 % (2.0-12.0); NEUTROPHILS # (AUTO) 10.1 /CMM (1.8-8.9); NEUTROPHILS % (AUTO) 81.6 % (43.0-81.0); RED BLOOD CELL COUNT(AUTO) 3.44 MIL/uL (4.5-6.0); WHITE BLOOD COUNT (AUTO) 12.4 K/uL (4.3-11.0)
[2020-08-15 04:14] LABS: PLATELET COUNT (AUTO) 996 /CMM (150-450)
[2020-08-15 04:16] LABS: ALBUMIN 2.3 g/dL (3.4-5.0); BILIRUBIN,DIRECT 0.1 mg/dL (0.0-0.2); BILIRUBIN,TOTAL 0.2 mg/dL (0.2-1.0)
--- NOTE | 2020-08-15 04:27 | NUR ---
DUPLEX AT BEDSIDE
--- NOTE | 2020-08-15 04:58 | NUR ---
DR. BEDOYA PAGED PER DR. FIELDS REQUEST REGARDING ADMISSION
--- NOTE | 2020-08-15 05:12 | NUR ---
AWAITING FOR PT TO PROVIDE URINE SAMPLE
[2020-08-15 05:43] LABS: BILIRUBIN,URINE Negative (NEGATIVE); BLOOD, URINE Negative Ery/uL (NEGATIVE); COLOR,URINE YELLOW (YELLOW); LEUKOCYTE ESTERASE ,URINE Negative (NEGATIVE); NITRITE, URINE Negative (NEGATIVE); PROTEIN,URINE Negative (NEGATIVE); UGLUCOSE Negative (NEGATIVE)
--- NOTE | 2020-08-15 05:49 | NUR ---
PT RESTING COMFORTABLY. VSS.
[2020-08-15 05:56] LABS: BACTERIA,URINE None seen /HPF (None Seen); RBC,URINE 0-2 /HPF (0-2); SQUAMOUS EPITHELIAL CELL,UR Few /HPF (None Seen); URINE AMORPHOUS PHOSPHATES Many /HPF (None Seen); WBC,URINE 0-2 /HPF (0-3)
[2020-08-15 05:57] LABS: MUCUS,URINE Few /LPF (None Seen)
[2020-08-15] MEDS ORDERED: CEFTRIAXONE 1GM BAG (ER ONLY) 50 ML IV ONE (05:59)
[2020-08-15] MEDS ORDERED: CEFTRIAXONE 1 G in IV D5W 50 ML IV ONE (06:00)
[2020-08-15] MEDS ORDERED: RIVAROXABAN 15 MG TABLET PO SCH (06:00)
[2020-08-15] MEDS ORDERED: QUETIAPINE FUMARATE 100 MG TABLET PO SCH (06:00)
[2020-08-15] MEDS ORDERED: Z GUARD REMEDY 2 OZ OINT TP PRN (06:30)
[2020-08-15] MEDS ORDERED: ONDANSETRON HCL/PF 4 MG/2 ML VIAL IVP PRN (06:30)
[2020-08-15] MEDS ORDERED: MAG HYDROX/AL HYDROX/SIMETH 30 ML UDC PO PRN (06:30)
[2020-08-15] MEDS ORDERED: ZOLPIDEM TARTRATE 5 MG TABLET PO PRN (06:30)
[2020-08-15] MEDS ORDERED: MAGNESIUM HYDROXIDE 30 ML UDC PO PRN (06:30)
--- NOTE | 2020-08-15 06:34 | NUR ---
CALLED PHARMACY REGARDING MEDS, UNAVAILABE, WILL CALL AGAIN SOON.
--- NOTE | 2020-08-15 06:59 | NUR ---
PT MEDICATED. PT ASLEEP, VSS.
--- NOTE | 2020-08-15 07:15 | NUR ---
BED ASSIGNMENT 323-1
--- NOTE | 2020-08-15 07:33 | NUR ---
REPORT GIVEN TO JHOAN CURTIS FOR ARAM
--- NOTE | 2020-08-15 07:35 | NUR ---
RN NOTES REPORT RECEIVED FROM Wilner BOYD VIA TELEPHONE
--- NOTE | 2020-08-15 07:41 | NUR ---
PATIENT TRANSFERRED TO [facility] SURG FLOOR IN STABLE CONDITION. NO DISTRESS NOTED. ENDORSED TO JHOAN CURTIS.
[2020-08-15] MEDS ORDERED: CEFT1VIA15 IV (07:47)
[2020-08-15] MEDS ORDERED: FERR325T23 PO (07:47)
[2020-08-15] MEDS ORDERED: NICO-677 TD (07:47)
[2020-08-15] MEDS ORDERED: VALS80TA2 PO (07:47)
[2020-08-15] MEDS ORDERED: RIVA10TA PO (07:47)
[2020-08-15] MEDS: PANTOPRAZOLE 40 MG TABLET.DR PO SCH (08:34)
--- NOTE | 2020-08-15 09:06 | NUR ---
RN NOTES PT ADMITTED TO UNIT AT 0800 VIA GURNEY ACCOMPANIED BY Wilner CISNEROS. A/O X4. ABLE TO MAKE NEEDS KNOWN, DENIES PAIN OR ANY DISCOMFORTS AT THIS TIME. ORIENTED TO STAFF AND ROOM. V/S TAKEN AND RECORDED. PT ON ROOM AIR, TOLERATING WELL WITH NO SOB NOTED. IV ACCESS NOTED OM SOPHIE g#18 INTACT, PATENT AND FLUSHES WELL. SAFETY MEASURES IMPLEMENTED: BED PLACED IN LOW LOCKED POSITION WITH SR UPX2. CALL LIGHT PLACED W/IN EASY REACH OF PT. WILL CONTINUE TO MONITOR PT ACCORDINGLY.
--- NOTE | 2020-08-15 09:30 | NUR ---
RN NOTES REPORT WAS GIVEN BY JHOAN
--- NOTE | 2020-08-15 10:00 | NUR ---
RN NOTES REPORT GIVEN TO KIRSTEN SOLIS VIA TELEPHONE. PT TRANSFERRED TO 208-1 AT 0945.
--- NOTE | 2020-08-15 10:07 | NUR ---
RN NOTES RECEIVED PT FROM [facility] 3 FLOOR TO 208
--- NOTE | 2020-08-15 10:11 | NUR ---
RN NOTES PER CHARGE NURSE LEWIS YU TO MOVE TO MS 2 RM [id number]
[2020-08-15] MEDS: HYDROCODONE/APAP 5/325MG TABLET PO PRN ×3 (12:10→23:53)
--- NOTE | 2020-08-15 12:10 | NUR ---
RN NOTES' PT HAS PAIN IN THE CALF RATING OF 6 GAVE CHERISE WILL REASSESS THE PAIN RATE AGAIN
--- NOTE | 2020-08-15 14:10 | NUR ---
SS consult required as pt. is experiencing homelessness. The pt. is a 54 year old male in telemetry 2nd floor seeking treatment for "generalized weakness and inability to walk since yesterday", per MD note. The pt. is in isolation for COVID-19 precaution as PCR COVID test is pending. SW called the pt.'s room but no answer. SW called MS2 and spoke to the pt.'s nurse, who notified pt. that SW wanted to interview him. Pt. declined being interviewed at this time. SW will follow up and call back later. Per pt.'s nurse, pt. will not be discharge today. SW will be available as needed.
[2020-08-15 16:00] VITALS: BP 115/78
[2020-08-15] MEDS: RIVAROXABAN 15 MG TABLET PO SCH (17:27)
--- NOTE | 2020-08-15 18:30 | NUR ---
RN CLOSING NOTES PT IS RESTING IN BED.ALERT AND ORIENTED X3.HOMELESS NO SOB OR RESPIRATORY DISTRESS NOTED. R UPPER HAND #18. SL NO INFILTRATION OR INFECTION NOTED. NON AMBULATORY. SAFETY MEASUREMENTS ARE IMPLEMENTED PER HOSPITAL POLICY. BED IS IN THE LOWEST POSITION. SIDE RAILS ARE UP.X2.CALL LIGHT WITHIN THE REACH. WILL ENDORSE TO PM NURSE FOR ARAM
--- NOTE | 2020-08-15 19:50 | NUR ---
RN OPENING NOTES, PATIENT IN BED ASLEEP AT THIS TIME AROUSES TO VERBAL STIMULI, SLEEPING BREATHING EVEN AND UNLABORED, S/S OF SOB/ACUTE RESPIRATORY DISTRESS NOTED AT THIS TIME, R UPPER HAND #18 SL PATENT AND INTACT, ALL SAFETY MEASUREMENTS IN PLACED, BED LOCKED AND LOWEST POSITION, SIDE RAILS ARE UP X2, CALL LIGHT WITHIN THE REACH, WILL CONTINUE TO MONITOR CLOSELY.
[2020-08-16] VITALS: BP 135/70
[2020-08-16 04:00] VITALS: BP 148/111
[2020-08-16] MEDS ORDERED: HYDROCORTISONE 1% CREAM 28.35 GM TUBE TP PRN (04:00)
[2020-08-16] MEDS: CEFTRIAXONE 1 G in IV D5W 50 ML IV SCH (05:18)
[2020-08-16] MEDS: HYDROCODONE/APAP 5/325MG TABLET PO PRN ×3 (05:18→16:01)
[2020-08-16 06:57] LABS: BASOPHILS % (AUTO) 0.2 % (0.0-2.0); EOSINOPHILS % (AUTO) 1.2 % (0.0-6.0); HEMATOCRIT 27 % (39-51); LYMPHOCYTES # (AUTO) 1.3 /CMM (0.8-4.8); LYMPHOCYTES % (AUTO) 15.5 % (20.0-44.0); MEAN CORPUSCULAR HGB CONC 34 g/dl (31.0-36.0); MEAN CORPUSCULAR VOLUME 87 fL (80-96); MONOCYTES # (AUTO) 0.7 /CMM (0.1-1.30); MONOCYTES % (AUTO) 8.7 % (2.0-12.0); NEUTROPHILS # (AUTO) 6.3 /CMM (1.8-8.9); NEUTROPHILS % (AUTO) 74.4 % (43.0-81.0); PLATELET COUNT (AUTO) 826 /CMM (150-450); RED BLOOD CELL COUNT(AUTO) 3.06 MIL/uL (4.5-6.0); WHITE BLOOD COUNT (AUTO) 8.4 K/uL (4.3-11.0)
--- NOTE | 2020-08-16 07:00 | NUR ---
RN CLOSING NOTES, PATIENT IN BED AWAKE AT THIS TIME, BREATHING EVEN AND UNLABORED, S/S OF SOB/ACUTE RESPIRATORY DISTRESS NOTED AT THIS TIME, NO SIGNIFICANT CHANGE IN CONDITION DURING THE NIGHT, SAFETY MEASUREMENTS IN PLACED, BED LOCKED AND LOWEST POSITION, SIDE RAILS ARE UP X2, CALL LIGHT WITHIN THE REACH, WILL ENDORSE CONTINUITY OF CARE TO ONCOMING NURSE.
--- NOTE | 2020-08-16 07:30 | NUR ---
PT RECEIVED RESTING COMFORTABLY IN BED. NO S/S OR C/O PAIN OR DISTRESS NOTED. SIDE RAILS UP X2, CALL LIGHT LEFT WITHIN REACH. WILL CONTINUE PLAN OF CARE.
[2020-08-16 07:58] LABS: CALCIUM, SERUM 8.6 mg/dL (8.5-10.1); CREATININE 0.4 mg/dL (0.6-1.3); MAGNESIUM 1.6 mg/dL (1.8-2.4); PHOSPHORUS 3.1 mg/dL (2.5-4.9); POTASSIUM 3.9 mmol/L (3.5-5.1)
[2020-08-16 08:00] VITALS: BP 123/89
[2020-08-16] MEDS: PANTOPRAZOLE 40 MG TABLET.DR PO SCH (10:00)
[2020-08-16] MEDS: Magnesium 1GM/D5W 100ML PREMIX 100 ML IV SCH ×2 (10:00→12:00)
[2020-08-16] MEDS: RIVAROXABAN 15 MG TABLET PO SCH ×2 (10:02→16:00)
--- NOTE | 2020-08-16 14:50 | NUR ---
assistant guest services manager consult required as patient is experiencing homelessness. This patient is 54-year-old male for generalized weakness and inability to walk since yesterday, per MD note. The pt. is in isolation for COVID-19 precaution. SW called patients KIRSTEN Clancy to confirm patient has a hospital phone in his room for this SW to speak to this patient. KIRSTEN Clancy confirmed and informed this SW that the patient has been cooperative. SW called patients room and patient was calm and cooperative throughout this assessment. Patient stated that that 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 Patient informed this SW that he was at [facility] and patient stated that he signed out AMA as he felt stable to leave. Patient stated he does not want to return to a rehab facility and would like a wheelchair to take care of himself and his business. SW explored patients desire not to return to a rehab facility and patient stated, I need to return to my business. Patient did not want to elaborate. Plan: SW will contact case management team to coordinate a safe and proper discharge. SW remains available for all needs regarding this patient
[2020-08-16 16:35] LABS: HEMOGLOBIN 9.5 g/dL (13.5-17.5)
[2020-08-16] MEDS ORDERED: FERROUS SULFATE (325 MG) 325 MG/TAB TABLET PO SCH (17:00)
--- NOTE | 2020-08-16 17:00 | NUR ---
PT REFUSED BED CHANGE AND SKIN CARE
--- NOTE | 2020-08-16 18:30 | NUR ---
DISCHARGE INSTRUCTIONS GIVEN TO PATIENT ORDERED. ENCOURAGED TO FOLLOW UP WITH PMD INSTRUCTED. ALL QUESTIONS AND CONCERNS ADDRESSED. PATIENT VERBALIZED UNDERSTANDING. MEDICATION RECONCILIATION FORM COMPLETED. COPY GIVEN TO PATIENT. IV REMOVED WITH CATHETER INTACT, PRESSURE DRESSING APPLIED. TELE UNIT REMOVED. PATIENT TRANSFERRED BY AMBULANCE. NO DISTRESS NOTED AT TIME OF DEPARTURE.
--- NOTE | 2020-08-16 19:38 | NUR ---
SUPERVISOR BRAKE REPAIR: CONTINUITY OF CARE Received patient in bed awake. No IV peripheral line, per patient it came out. Sinus Tach HR 113 in the Tele monitor. Tolerating room air, no cough, denies pain. Covid PCR pending result.
[2020-08-16 20:00] VITALS: BP 125/85
[2020-08-16 20:15] VITALS: BP 125/85
--- NOTE | 2020-08-16 21:28 | NUR ---
CLOTH SANDER: ANTICOAGULANT Received call from Clare/FERNANDEZ reviewed Xarelto medication. Per FERNANDEZ Sparks she will place order for Lovenox to start tomorrow.
--- NOTE | 2020-08-16 23:16 | NUR ---
TOBACCO PREVENTION HEALTH EDUCATOR: COVID TEST RESULTED Received call from Yuliya/lab reported Covid test PCR resulted negative.
--- NOTE | 2020-08-16 23:56 | NUR ---
CASTING WHEEL OPERATOR: TRANSFERRING PATIENT TO ROOM 315 Will give bedside report to KIRSTEN Santoyo.
[2020-08-17] VITALS: BP 142/82
[2020-08-17] MEDS: HYDROCODONE/APAP 5/325MG TABLET PO PRN (00:28)
[2020-08-17] MEDS: ACETAMINOPHEN 325 MG TABLET PO PRN ×2 (01:06→17:22)
--- NOTE | 2020-08-17 01:06 | NUR ---
RAG SHREDDER: TRANSFERRED PATIENT BY BED Patient stating he received PNA vaccine last year but not completely know the date. PNA vaccination date updated. Bedside report given to KIRSTEN Santoyo. All personal belongings send with the patient upon transferred.
--- NOTE | 2020-08-17 01:06 | NUR ---
MANAGER STAR NOTES PT TEMP 99.5, GIVEN TYLENOL AT 0106. WILL CONTINUE TO MONITOR.
--- NOTE | 2020-08-17 01:10 | NUR ---
BRICK OFF BEARER NOTES RECEIVED PT FROM STEPHAN CURTIS FOR ARAM
[2020-08-17 01:20] VITALS: BP 144/85
--- NOTE | 2020-08-17 01:35 | NUR ---
OUTDOOR ADVENTURE LEADER NOTES PT REFUSED IV INSERTION SAID TOO MUCH PAIN RN. AGREED TO BE ATTEMPTED AT 0500. WILL CONTINUE TO MONITOR.
--- NOTE | 2020-08-17 02:06 | NUR ---
WATER TREATMENT PLANT SUPERVISOR NOTES RECHECKED TEMP 98.6. WILL CONTINUE TO MONITOR.
[2020-08-17] MEDS: CEFTRIAXONE 1 G in IV D5W 50 ML IV SCH (06:02)
--- NOTE | 2020-08-17 06:44 | NUR ---
OFFSET PRESS OPERATOR HELPER NOTES PATIENT IN BED, ASLEEP, ALERT AND ORIENTED X 4. BREATHING EVEN AND UNLABORED ON ROOM AIR. SHOWS NO SIGNS OF ACUTE RESPIRATORY DISTRESS. NO ACUTE PAIN. TELE MONITOR ST. IV ON R FA 22G. SHOWS NO SIGNS OF INFILTRATION, NO REDNESS. ALL DUE MEDICATIONS GIVEN. ALL NEEDS ATTENDED TO. SAFETY PRECAUTIONS IN PLACE. BED IN LOWEST POSITION, LOCKED, AND CALL LIGHT KEPT WITHIN REACH. WILL ENDORSE TO ONCOMING NURSE.
[2020-08-17 08:00] VITALS: BP 149/101
--- NOTE | 2020-08-17 08:04 | NUR ---
DIRECTOR OF CASEWORK DEPARTMENT NOTE PATIENT IN BED RESTING COMFORTABLY. PATIENT IN NO ACUTE DISTRESS. NO SOB NOTED. PATIENT BREATHING IS EVEN AND UNLABORED. PATIENT ON CARDIAC MONITORING READING SINUS TACHYCARDIA HR 114. PATIENT BED ALARM IS ON. SAFETY PRECAUTIONS IN PLACE. PATIENT BED IS LOCKED AND IN LOWEST POSITION. CALL LIGHT WITHIN REACH. WILL CONTINUE TO MONITOR.
[2020-08-17 08:32] LABS: BASOPHILS % (AUTO) 0.4 % (0.0-2.0); EOSINOPHILS % (AUTO) 1.4 % (0.0-6.0); HEMATOCRIT 29 % (39-51); HEMOGLOBIN 9.4 g/dL (13.5-17.5); LYMPHOCYTES # (AUTO) 1.3 /CMM (0.8-4.8); LYMPHOCYTES % (AUTO) 13.3 % (20.0-44.0); MEAN CORPUSCULAR HGB CONC 33 g/dl (31.0-36.0); MEAN CORPUSCULAR VOLUME 87 fL (80-96); MONOCYTES # (AUTO) 0.8 /CMM (0.1-1.30); MONOCYTES % (AUTO) 8.2 % (2.0-12.0); NEUTROPHILS # (AUTO) 7.4 /CMM (1.8-8.9); NEUTROPHILS % (AUTO) 76.7 % (43.0-81.0); PLATELET COUNT (AUTO) 865 /CMM (150-450); RED BLOOD CELL COUNT(AUTO) 3.32 MIL/uL (4.5-6.0); WHITE BLOOD COUNT (AUTO) 9.6 K/uL (4.3-11.0)
[2020-08-17] MEDS ORDERED: VALSARTAN 80 MG TABLET PO SCH (09:00)
[2020-08-17] MEDS ORDERED: ENOXAPARIN SODIUM 80 MG/0.8 ML DISP.SYRIN SQ SCH (09:00)
[2020-08-17] MEDS ORDERED: NICOTINE PATCH (21MG) 21 MG PATCH.TD24 TD SCH (09:00)
[2020-08-17 09:16] LABS: CALCIUM, SERUM 8.7 mg/dL (8.5-10.1); CREATININE 0.5 mg/dL (0.6-1.3); POTASSIUM 3.7 mmol/L (3.5-5.1)
[2020-08-17] MEDS: PANTOPRAZOLE 40 MG TABLET.DR PO SCH (09:16)
[2020-08-17] MEDS ORDERED: RIVA10TA PO (12:30)
[2020-08-17] MEDS ORDERED: SULF1TAB48 PO (12:34)
--- NOTE | 2020-08-17 15:53 | NUR ---
SW met with the patient at bedside regarding a follow-up. SW spoke with the patient and patient informed this SW that he would like to be discharged to self and back to the streets. 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 SW and patient discussed need to homeless community resources and patient accepted these resources. Patient also informed this SW regarding a wheelchair. SW informed patient that this SW would follow-up regarding wheelchair and this SW would inform KIRSTEN Quevedo. Patient in agreement. SW provided the following resources to this patient: Substance Abuse resources provided included: [facility] Substance Abuse Self-Helpline ([facility]) ; [facility] [address] [facility]. [place] [id number] ; [facility] [address] [facility] [address] ; [facility] [address] [facility] [address] ; [facility] [address] [facility] [id number] ; [facility] [address] [facility] [address] [facility] [facility] [id number] ; [facility]stance Abuse Helpline([facility] ; [facility] ; [facility] [place] [facility] [place]; [facility] [place]; [facility] [place]; [place] [place]; [place] [facility]; [facility] Pillow; [facility]. [place]; Alcoholics Anonymous -[facility]; Er-Upjd-Zdlwysr ; Marijuana Anonymous -[facility]; Narcotics Anonymous www.na.org. Year-round shelters: [facility] [place] [address] [place] [address] ; [place] [address] [facility] [place] [address]; [place] [facility] [address] [facility] [address] Hygiene: [facility]: [address] [place] ; [place] [facility] [address] [facility] ; [facility] [address] [place] . Food Resources: [place] [facility]- [address] [facility]; Meet Each Need with [facility] ([facility]) [address] [facility]; [facility] 43[address] [facility]; [facility] 8512 [facility]. Mental Health resources provided: [facility] [address] [place], [place] [address] ; [facility] [employer] [address] [facility] [address], [place], [place] [id number] ; [facility] [address] [place] [address] ; [facility] [address] [place], [place] [id number] Healthcare Clinics: [facility] [address] [facility], [address] [place]. [place] ; [facility] [address] [facility] [address] [place] [address]; [facility] [address] [facility]. [place] [phone]
[2020-08-17 16:00] VITALS: BP 147/101
--- NOTE | 2020-08-17 17:21 | NUR ---
MS RN NOTE PATIENT REQUESTING TYLENOL. TYLENOL PRN TO BE GIVEN ORDERED. Addendum: 08/17/20 at 1723 by BAN GIBBS RN MS CURTIS NOTE PATIENT REQUESTING TYLENOL FOR LOWER LEG PAIN 11/22. TYLENOL PRN TO BE GIVEN ORDERED.
--- NOTE | 2020-08-17 18:00 | NUR ---
MS MIME ARTIST NOTE PATIENT MEDICALLY STABLE FOR DISCHARGE. PATIENT IN NO ACUTE DISTRESS. NO SOB NOTED. PATIENT BREATHING IS EVEN AND UNLABORED. PATIENT ID BAND REMOVED. PATIENT IV REMOVED. PATIENT DC INSTRUCTIONS PROVIDED. PATIENT VERBALIZED UNDERSTANDING. PATIENT REFUSED SKIN ASSESSMENT. EDUCATED RISKS VS BENEFITS. PATIENT CONTINUED TO REFUSE. PATIENT BELONGINGS SIGNED AND LIST SIGNED. PATIENT HOMELESS WAIVER SIGNED. PATIENT GIVEN BUS CARD AND FRONT WHEEL WALKER. PATIENT KEPT CLEAN, DRY, AND COMFORTABLE THROUGHOUT SHIFT. NEEDS AND CONCERNS ADDRESSED. SECTION CUTTER PROVIDED RESOURCES FOR HOMELESS SHELTERS. PATIENT STATES HE WILL USE BUS TO GET TO FORMER [employer] OFFICER. PATIENT AMBULATORY WITH FRONT WHEEL WALKER. PRESCRIPTION WITH PATIENT. MD AWARE OF DISCHARGE.
== END 2020-08-17 18:10 | disposition home or self-care (01) | DRG 197 ==
LOC: ER 03:21 → MED 07:24 → TELE2 10:00 → TELE 08-17 01:02 → MED 08-17 12:56
PROVIDERS: ADMIT Nurse Practitioner Acute Care; ATTEND Nurse Practitioner Acute Care
DX: I82.493 Acute embolism and thrombosis of other specified deep vein of lower extremity, bilateral (principal); Z79.01 Long term (current) use of anticoagulants; E44.0 Moderate protein-calorie malnutrition; F17.210 Nicotine dependence, cigarettes, uncomplicated; Z88.0 Allergy status to penicillin; Z59.0 Homelessness; F20.9 Schizophrenia, unspecified; Z68.23 Body mass index [BMI] 23.0-23.9, adult; D63.8 Anemia in other chronic diseases classified elsewhere; L03.116 Cellulitis of left lower limb; L03.115 Cellulitis of right lower limb; R53.1 Weakness; D47.3 Essential (hemorrhagic) thrombocythemia; D72.829 Elevated white blood cell count, unspecified; E88.09 Other disorders of plasma-protein metabolism, not elsewhere classified; R73.9 Hyperglycemia, unspecified; Z91.19 Patient's noncompliance with other medical treatment and regimen; Z71.6 Tobacco abuse counseling
CPT/HCPCS: 36415; 71045-TC; 80048-TC; 80061-TC; 80076-TC; 81001; 82550-TC; 83735-TC; 84100-TC; 84484-TC; 85025-TC; 85027-TC; 85730-TC; 87040-TC; 87081-TC; 93970-TC; C9803; G0378; J0696; J1650; J3475; J7030; J7050; J7060; U0003

== ENCOUNTER 2021-06-26 08:41 | Emergency (ER) | payer MEDICAID, OTHER ==
[~2021-06-26] VITALS: Ht 177.8 cm; Wt 78.5 kg
[~2021-06-26 08:41] MED LIST changes: +FERR325T23 PO; +NICO-762 TD; -ONDANSETRON HCL/PF 4 MG/2 ML VIAL IVP PRN; +RIVA10TA PO; +SULF1TAB48 PO; +VALS80TA2 PO
--- NOTE | 2021-06-26 09:00 | NUR ---
Natalie coker in [facility] - 06/26/21 at [address] PAEZ AT THE BEDSIDE
--- NOTE | 2021-06-26 09:00 | NUR ---
THE PATIENT IS [place] AND PER REPORT THE PATIENT IS HOMELESS AND WAS FOUND ON THE STREET WITH ALCOHOL BOTTLES. THE PATIENT IS SLEEPING. RESPONSVE TO TACTILE STIMULI. IN ROOM AIR. RESPIRATION REGULAR AND UNLABORED. ATTACHED TO THE MONITOR. WARM BLANKET PROVIDED FOR COMFORT. WILL CONTINUE TO MONITOR THE PATIENT.
--- NOTE | 2021-06-26 09:00 | NUR ---
DR GARCIA AT THE BEDSIDE
--- NOTE | 2021-06-26 09:06 | NUR ---
THE PHLEBATOMIST AT THE BEDSIDE
[2021-06-26 09:24] LABS: HEMATOCRIT 43 % (39-51); HEMOGLOBIN 13.4 g/dL (13.5-17.5); MEAN CORPUSCULAR HGB CONC 32 g/dl (31.0-36.0); MEAN CORPUSCULAR VOLUME 89 fL (80-96); PLATELET COUNT (AUTO) 348 K/uL (150-450); RED BLOOD CELL COUNT(AUTO) 4.82 MIL/uL (4.5-6.0); WHITE BLOOD COUNT (AUTO) 8.3 K/uL (4.3-11.0)
[2021-06-26 09:34] LABS: ACETAMINOPHEN < 10 ug/ml (10-30); ALANINE AMINOTRANSFERASE 24 U/L (12-78); ALBUMIN 3.4 g/dL (3.4-5.0); ALCOHOL, BLOOD < 3 mg/dL (0-0); ALKALINE PHOSPHATASE 100 U/L (46-116); ASPARTATE AMINOTRANSFERASE 18 U/L (15-37); BILIRUBIN,TOTAL 0.1 mg/dL (0.2-1.0); CALCIUM, SERUM 8.4 mg/dL (8.5-10.1); CARBON DIOXIDE 29 mmol/L (21-32); CHLORIDE 104 mmol/L (98-107); CREATININE 0.7 mg/dL (0.6-1.3); GLUCOSE 104 mg/dL (74-106); POTASSIUM 3.9 mmol/L (3.5-5.1); SODIUM SERUM 141 mmol/L (136-145); TOTAL PROTEIN, SERUM 7.3 g/dL (6.4-8.2); UREA NITROGEN, BLOOD 12 mg/dL (7-18)
--- NOTE | 2021-06-26 09:38 | NUR ---
URINE COLLECTED AND SENT TO THE LAB
[2021-06-26 09:50] LABS: BILIRUBIN,URINE Negative (NEGATIVE); COLOR,URINE YELLOW (YELLOW); LEUKOCYTE ESTERASE ,URINE Negative (NEGATIVE); NITRITE, URINE Negative (NEGATIVE); PH,URINE 7.5 (5.0-8.0); PROTEIN,URINE Negative (NEGATIVE); UGLUCOSE Negative (NEGATIVE); UROBILINOGEN,URINE 0.2 EU/dL (0.2)
[2021-06-26 10:06] LABS: RBC,URINE 0-2 /HPF (0-2)
[2021-06-26] MEDS ORDERED: NALOXONE PREFILLED SYRINGE 2 MG/2 ML SYRINGE ONE ×2 (10:17→11:02)
[2021-06-26] MEDS ORDERED: NALOXONE HCL 0.4 MG/ML AMPUL IV ONE (10:30)
--- NOTE | 2021-06-26 10:30 | NUR ---
THE PATIENT IS TAKEN TO CT
--- NOTE | 2021-06-26 10:44 | NUR ---
STARTED RIGHT HAND G 20 WITH GOOD BLOOD RETURN. THE PATIENT TOLERATED IV INSERTION WELL.
--- NOTE | 2021-06-26 10:45 | NUR ---
THE PATIENT IS BACK FROM CT.
--- NOTE | 2021-06-26 10:46 | NUR ---
THE PATIENT IS RESPONSIVE TO TACTILE STIMULI BY MAKING NOISE.
--- NOTE | 2021-06-26 10:55 | NUR ---
THE PATIENT STILL SLEEPING. RESPONDING ONLY TO TACTILE STIMULI. DR HOLDER MADE AWARE. WILL CONTINUE TO MONITOR THE PATIENT.
--- NOTE | 2021-06-26 10:59 | NUR ---
RECEIVED ORDER FROM DR HOLDER: NARCAN 1 MG IV PUSH ONCE AND NORMAL SALINE 1000 ML IV WIDE OPEN ONCE. THE ORDERS ARE READ BACK, VERIFIED. NOTED AND CARRIED OUT.
[2021-06-26] MEDS ORDERED: IV NS 0.9% 1,000 ML IV ONE (11:00)
[2021-06-26] MEDS ORDERED: NALOXONE PREFILLED SYRINGE 2 MG/2 ML SYRINGE IV ONE ×3 (11:00→11:30)
--- NOTE | 2021-06-26 11:12 | NUR ---
THE PATIENT STILL RESPONSIVE ONLY TO TACTILE STIMULI. DR HOLDER MADE AWARE.
--- NOTE | 2021-06-26 11:14 | NUR ---
RECEIVED ORDER FROM DR HOLDER: NARCAN 1 MG IV PUSH ONCE. THE ORDER IS READ BACK, VERIFIED. NOTED AND CARRIED OUT.
--- NOTE | 2021-06-26 11:26 | NUR ---
THE PATIENT IS STILL RESPONSIVE ONLY TO TACTILE STIMULI. DR HOLDER MADE AWARE
--- NOTE | 2021-06-26 11:27 | NUR ---
RECEIVED ORDER FROM DR HOLDER: NARCAN 1 MG IV PUSH ONCE. THE ORDER IS READ BACK, VERIFIED. NOTED AND CARRIED OUT.
--- NOTE | 2021-06-26 11:37 | NUR ---
THE PATIENT SLEEPING BUT EASILY RESPONSIVE TO VERBAL STIMULI. IN ROOM AIR AND DENIES SOB. RESPIRATION REGULAR AND UNLABORED. DENIES PAIN. VSS. DR HOLDER MADE AWARE. WILL CONTINUE TO MONITOR THE PATIENT. SITTER AT THE BEDSIDE
--- NOTE | 2021-06-26 11:46 | NUR ---
THE PATIENT DENIES SI/HI
--- NOTE | 2021-06-26 12:41 | NUR ---
THE PATIENT SLEEPING, RESPONSIVE TO VERBAL STIMULI. RESPIRATION REGULAR AND UNLABORED. WILL CONTINUE TO MONITOR THE PATIENT. VSS. ATTACHED TO THE MONITOR.
[2021-06-26 13:36] LABS: EOSINOPHILS % (MANUAL) 2 % (0-4); LYMPHOCYTES % (MANUAL) 24 % (16-48); MONOCYTES % (MANUAL) 13 % (0-11.0); NEUTROPHILS % (MANUAL) 61 (42-76)
--- NOTE | 2021-06-26 18:53 | NUR ---
THE PATIENT FULLY AWAKE, ALERT AND ORIENTED X3. DENIES SI/HI. IN ROOM AIR AND DENIES SOB. RESPIRATION REGULAR AND UNLABORED. DENIES PAIN. VSS. ATTACHED TO THE MONITOR. THE PATIENT IS SERVED WITH DINNER. TOLERATES PROVIDED FOOD WELL. WILL CONTINUE TO MONITOR THE PATIENT. SITTER AT THE BEDSIDE.
--- NOTE | 2021-06-26 19:25 | NUR ---
REPORT GIVEN TO NURSE JENNIFER
--- NOTE | 2021-06-26 20:30 | NUR ---
Patient discharged to home in stable condition. Written and verbal after care instructions given. Patient verbalizes understanding of instruction.
[2021-06-26 21:20] VITALS: BP 124/75
== END 2021-06-26 21:21 | disposition home or self-care (01) ==
LOC: ER 08:47
DX: F15.10 Other stimulant abuse, uncomplicated (principal); R41.82 Altered mental status, unspecified; F10.10 Alcohol abuse, uncomplicated; F17.200 Nicotine dependence, unspecified, uncomplicated; Y90.0 Blood alcohol level of less than 20 mg/100 ml; Z88.0 Allergy status to penicillin; Z59.00 Homelessness unspecified; Z79.899 Other long term (current) drug therapy
CPT/HCPCS: 36415; 70450; 80048; 80076; 80143; 80307; 80320; 81001; 85007; 85025; 96361; 96374; 99285; J2310 ×2; J7030; G0480

== ENCOUNTER 2021-10-05 15:23 | Emergency (ER) | payer OTHER ==
[~2021-10-05] VITALS: Ht 188 cm; Wt 82.1 kg
[2021-10-05 15:25] VITALS: BP 127/90
--- NOTE | 2021-10-05 15:30 | NUR ---
BIB RA 39,C/O BILATERAL LEG EDEMA X MORE THAN A MONTH. RESPIRATION REGULAR AND UNLABORED. WILL CONTINUE TO MONITOR THE PATIENT.
[2021-10-05] MEDS ORDERED: IBUPROFEN 600 MG TABLET ONE (15:55)
[2021-10-05] MEDS ORDERED: ACETAMINOPHEN 325 MG TABLET ONE (15:55)
[2021-10-05] MEDS ORDERED: ACETAMINOPHEN 325 MG TABLET PO ONE (16:00)
[2021-10-05] MEDS ORDERED: IBUPROFEN 600 MG TABLET PO ONE (16:00)
--- NOTE | 2021-10-05 17:39 | NUR ---
Patient given written and verbal discharge instructions. Patient verbalizes understanding of instructions. Patient is ambulatory with steady gait. Refuses offer of care home placement. Patient given list of available shelters in surrounding area. Patient discharged in stable condition. Written and verbal after care instructions given. Patient verbalizes understanding of instruction.
== END 2021-10-05 17:40 | disposition home or self-care (01) ==
LOC: ER 15:30
DX: G89.29 Other chronic pain (principal); M25.571 Pain in right ankle and joints of right foot; M25.572 Pain in left ankle and joints of left foot; R22.43 Localized swelling, mass and lump, lower limb, bilateral; F20.9 Schizophrenia, unspecified; F32.9 Major depressive disorder, single episode, unspecified; F41.9 Anxiety disorder, unspecified; F17.200 Nicotine dependence, unspecified, uncomplicated; Z88.0 Allergy status to penicillin; Z59.00 Homelessness unspecified; Z79.899 Other long term (current) drug therapy